=== PATIENT | male | born 1950 | race Caucasian/White ===

== ENCOUNTER 2016-06-27 12:31 | Emergency (ER) | payer OTHER ==
[2016-06-27 12:51] VITALS: BP 121/91; PULSE 84; BMI 20.1
--- NOTE | 2016-06-27 12:57 | PDOC ---
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 HISTORY OF PRESENT ILLNESS: The patient denies fever, n/v/d, CP, SOB, abd pain , back pain, and all other symptoms. Pt denies any hx of illicit drug use. Pt currently smokes 10 cigarettes a day. Pt currently lives in a senior care. Vital signs on arrival are within normal limits. REVIEW OF SYSTEMS: GENERAL/CONSTITUTIONAL: No fever/chills. No weakness. No weight change. HEAD, EYES, EARS, NOSE AND THROAT: No change in vision. No ear pain or discharge. No sore throat. CARDIOVASCULAR: No chest pain or shortness of breath. RESPIRATORY: No cough, wheezing, or hemoptysis. GASTROINTESTINAL: +constipation. No abd pain, nausea, vomiting. GENITOURINARY: No dysuria, frequency, or change in urination. MUSCULOSKELETAL: No joint or muscle swelling or pain. No neck or back pain. SKIN: No rash or easy bruising. NEUROLOGIC: No headache, vertigo, loss of consciousness, or loss of sensation. PHYSICAL EXAM: GENERAL: The patient is awake, alert, and fully oriented, in no acute distress. He is ambulatory and well appearing. HEAD: Normal with no signs of trauma. ENT: Pupils equal, round and reactive to light, extraocular movements intact, sclera anicteric, conjunctiva clear. Neck supple. LUNGS: Clear to auscultation bilaterally. Normal excursion. No respiratory distress or use of accessory muscles. CV: RRR, S1/S2, no MRG. Cap refill < 2 sec. ABDOMEN: Soft, non-distended, non-tender even to deep palpation, no hepatomegaly or splenomegaly, no masses. EXTREMITIES: Normal range of motion, no edema. NEUROLOGICAL: Normal speech, normal gait. CN II-XII grossly intact. PSYCH: Anxious SKIN: Warm, dry, normal turgor, no rashes or lesions noted. <Marge Campos - Last Filed: 06/27/16 17:55> <Teresa Marino - Last Filed: 06/28/16 10:12> - General Chief Complaint: Constipation Stated Complaint: ABD PAIN Time Seen by Provider: 06/27/16 12:52 Past History - Past Medical History Cancer: Yes (throat) Hypercholesterolemia: Yes Psychiatric Problems: Yes (anxiety,depression) Suicide Attempt (Hx): Yes - Psycho/Social/Smoking Cessation Hx Anxiety: No Suicidal Ideation: No Smoking History: Current every day smoker Have you smoked in the past 12 months: Yes Number of Cigarettes Smoked Daily: 8 Information on smoking cessation initiated: No Hx Alcohol Use: No Drug/Substance Use Hx: No Substance Use Type: None <Marge Campos - Last Filed: 06/27/16 17:55> <Teresa Marino - Last Filed: 06/28/16 10:12> - Past Medical History Allergies/Adverse Reactions: Allergies Allergy/AdvReac Type Severity Reaction Status Date / Time No Known Allergies Allergy Verified 03/24/16 12:43 Home Medications: Ambulatory Orders Polyethylene Glycol 3350 [Miralax (For Daily Use) -] 17 gm PO DAILY #1 bottle *Physical Exam - Vital Signs Last Vital Signs Temp Pulse Resp BP Pulse Ox 84 18 121/91 100 06/27/16 12:47 06/27/16 12:47 06/27/16 12:47 06/27/16 12:47 <aMrge Campos - Last Filed: 06/27/16 17:55> - Vital Signs Last Vital Signs Temp Pulse Resp BP Pulse Ox 84 18 121/91 100 06/27/16 12:47 06/27/16 12:47 06/27/16 12:47 06/27/16 12:47 <Teresa Marino - Last Filed: 06/28/16 10:12> ED Treatment Course - Medications Given in the ED: ED Medications Discontinued Medications Generic Name Dose Route Start Last Admin Trade Name Freq PRN Reason Stop Dose Admin Lactulose 20 gm 06/27/16 16:10 06/27/16 16:20 Cephulac (Oral Use) PO 06/27/16 16:11 20 gm ONCE ONE Administration <Teresa Marino - Last Filed: 06/28/16 10:12> Medical Decision Making - Medical Decision Making A/P: 65 y/o afebrile male with constipation x 5-6 days. Plan is as follows: 1. xray abd flat and upright xray abd flat/upright IMPRESSION (Wet read): No evidence of bowel obstruction. Large amount of stool in the rectum. THe patient has continued to appear well in the ER and has eaten a sandwich. Will give Lactulose and discharge to home. Strongly encouraged him to drink plenty of fluids and f/u with his doctor as soon as possible. Instructed him to return to the ER with any worsening or concerning symptoms. The patient verbalizes understanding of all instructions, has no further questions and is awaiting discharge. xray abd flat/upright IMPRESSION (official read): Prominent diffuse colonic fecal retention. No air- filled bowel distention is visualized. <Marge Campos - Last Filed: 06/27/16 17:55> *DC/Admit/Observation/Transfer <Marge Campos - Last Filed: 06/27/16 17:55> - Attestations Physician Attestion: I reviewed the case with the mid-level practitioner and agree with the mid- level practitioner's assessment, diagnosis and disposition. <Teresa Marino - Last Filed: 06/28/16 10:12> Diagnosis at time of Disposition: Constipated - Discharge Dispostion Disposition: HOME Condition at time of disposition: Good - Prescriptions Prescriptions: Polyethylene Glycol 3350 [Miralax (For Daily Use) -] 17 gm PO DAILY #1 bottle - Referrals Referrals: Denis Buchanan MD [Primary Care Provider] - Call tomorrow - Patient Instructions Printed Discharge Instructions: DI for Constipation, Increased Dietary Fiber May Improve Constipation Conditions With Pelvic Pardeep Additional Instructions: Discharge Instructions: -Drink at least 64oz of water daily -Take Miralax for constipation; it can be found over the counter at any local pharmacy -Follow up with Dr. Buchanan this week -Return to the ER with any worsening or concerning symptoms
[2016-06-27] MEDS ORDERED: LACTULOSE 20 GM/30 ML UDC (FOR ORAL USE ONLY) PO ONE (16:10)
[2016-06-27] MEDS ORDERED: LACTULOSE 20 GM/30 ML UDC (FOR ORAL USE ONLY) ONE (16:21)
== END 2016-06-27 16:20 | disposition home or self-care (01) ==
LOC: JER 12:31
DX: K59.00 Constipation, unspecified (principal); F41.8 Other specified anxiety disorders; C14.0 Malignant neoplasm of pharynx, unspecified; F17.210 Nicotine dependence, cigarettes, uncomplicated
CPT/HCPCS: 74020-TC; 99282-25

== ENCOUNTER 2018-04-07 14:01 | Inpatient (IN) | payer OTHER ==
--- NOTE | 2018-04-07 14:52 | PDOC ---
Attending Attestation - Resident Resident Name: Lucinda Eisenberg - [facility] HPI: 04/07/18 17:38 The patient is a 67-year-old male with past medical history significant depression presents to the emergency department via EMS from a intermediate with a week of a cough. The patient reports hes been having a week of a productive cough with yellow-greenish sputum, thats been progressively worsening. The patient reports associated symptom of decreased appetite, weight loss, and a sore throat. The patient denies being compliant with medication. Denies fever, headaches, chest pain, abdominal pain, nausea, vomiting, diarrhea, or urinary or bowel symptoms. Allergies: NKA Social history: Current everyday smoker. No past or present use of alcohol or recreational drugs. Surgical history : None reported - Physicial Exam PE: 04/07/18 17:38 GENERAL: Speaking in complete sentence. Awake, alert, and fully oriented, in no acute distress LUNGS: +decreased breath sounds bilaterally with crackles at the base. No wheezes. HEART: Regular rate and rhythm, normal S1 and S2, no murmurs, rubs or gallops - Medical Decision Making 04/07/18 17:42 Documentation prepared by Elaine Sanchez, acting as medical doctor md/medical director for Sydnie Ruiz MD.
--- NOTE | 2018-04-07 15:07 | PDOC ---
History of Present Illness - General Chief Complaint: Shortness of Breath Stated Complaint: DIFF. BREATHING Time Seen by Provider: 04/07/18 14:49 History Source: Patient Exam Limitations: No Limitations - History of Present Illness Initial Comments: 04/07/18 15:06 Pt is a 67yo m with PMH of depression BIBA from care home for cough. Pt says he has been having cough for the past couple of weeks productive of green- yellow sputum that has gotten worse. Pt says he saw his PMD a few weeks ago but did not have any medications given. prison called EMS for patient. He admits to sore throat, SOB during coughs and nausea. He is denying fevers, headaches, chest pain, abdominal pain, n/v/d, urinary symptoms, weakness, numbness tingling. When asked, pt says that he has been losing weight, has night sweats and loss of appetite. Denies hemoptysis. He has been smoking "for a long time" and smokes 7 cigarettes/day. Denies IV drug use, alcohol use. Denies sick contacts. PMD: Dewayne PMH: depression PSH: tongue mass removal Meds: see med rec Social: 7 cigarettes/day Allergies: nkda Past History - Past Medical History Allergies/Adverse Reactions: Allergies Allergy/AdvReac Type Severity Reaction Status Date / Time No Known Allergies Allergy Verified 04/07/18 14:22 Home Medications: Ambulatory Orders Clonazepam [Klonopin] 1 tab PO BID 04/07/18 Clozapine 200 mg PO HS 04/07/18 Clozapine [Versacloz] 50 mg PO DAILY 04/07/18 Escitalopram Oxalate [Lexapro -] 10 mg PO DAILY 04/07/18 Cancer: Yes (throat) COPD: No Hypercholesterolemia: Yes Psychiatric Problems: Yes (anxiety,depression) - Suicide/Smoking/Psychosocial Hx Smoking History: Current every day smoker Have you smoked in the past 12 months: Yes Number of Cigarettes Smoked Daily: 8 Information on smoking cessation initiated: No Hx Alcohol Use: No Drug/Substance Use Hx: No Substance Use Type: None Review of Systems - Review of Systems Constitutional: Yes: Chills, Loss of Appetite, Night Sweats, Weakness, Unintentional Wgt. Loss. No: Fever HEENTM: Yes: Throat Pain. No: Eye Pain, Blurred Vision, Ear Pain, Nose Congestion Respiratory: Yes: Cough, Shortness of Breath. No: Hemoptysis Cardiac (ROS): No: Chest Pain, Lightheadedness, Palpitations, Syncope ABD/GI: Yes: Nausea. No: Constipated, Diarrhea, Rectal Bleeding, Vomiting, Tarry Stools : No: Burning, Dysuria, Frequency, Flank Pain, Testicular Swelling, Testicular Pain Musculoskeletal: No: Joint Pain, Muscle Pain, Neck Pain, Joint Stiffness Integumentary: No: Symptoms Reported Neurological: No: Headache, Numbness, Tingling, Tremors, Weakness Psychiatric: Yes: Depression *Physical Exam - Vital Signs Last Vital Signs Temp Pulse Resp BP Pulse Ox 99.3 F 83 20 113/80 93 L 04/07/18 14:16 04/07/18 14:58 04/07/18 14:58 04/07/18 14:16 04/07/18 14:58 - Physical Exam General Appearance: Yes: Appropriately Dressed, Cachetic. No: Apparent Distress HEENT: positive: EOMI, JASWINDER, TMs Normal, Pharynx Normal, Hearing Grossly Normal. negative: Pharyngeal Erythema, Tonsillar Exudate, Nasal Congestion Neck: positive: Trachea midline, Supple. negative: Carotid bruit, Lymphadenopathy (R), Lymphadenopathy (L) Respiratory/Chest: positive: Decreased Breath Sounds (in both lung sosa), Crackles (lower lung sosa). negative: Lungs Clear, Normal Breath Sounds Cardiovascular: positive: Regular Rhythm, Regular Rate, S1, S2. negative: Edema , JVD, Murmur Vascular Pulses: Carotid (R): 2+, Carotid (L): 2+, Dorsalis-Pedis (R): 2+, Doralis-Pedis (L): 2+ Gastrointestinal/Abdominal: positive: Normal Bowel Sounds, Flat, Soft. negative : Distended, Guarding, Rebound, Tenderness Male Genitalia: positive: normal genitalia. negative: testicular tenderness, testicular mass Musculoskeletal: negative: CVA Tenderness Extremity: positive: Normal Capillary Refill, Other (clubbing). negative: Swelling, Calf Tenderness Integumentary: positive: Normal Color, Dry, Warm. 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 negative: Sensory Deficit ED Treatment Course - LABORATORY CBC & Chemistry Diagram: 04/07/18 15:36 04/07/18 15:36 Medical Decision Making - Medical Decision Making 04/07/18 15:23 Pt is a 67yo m with PMH of depression ANGELLA from care home for cough. Pt says he has been having cough for the past couple of weeks productive of green- yellow sputum that has gotten worse. has been losing weight, has night sweats and loss of appetite Vitals: Selected Entries 04/07/18 14:16 Temperature 99.3 F Respiratory 18 Rate Blood Pressure 113/80 Blood Pressure 91 Mean O2 Sat by Pulse 94 L Oximetry (%) PE: cachectic, decreased breath sounds bilaterally with crackles at the bases Rectal temp 101. DDx: pna, copd, chf, acs, pe, low suspicion for pe given normotensive, not tachycardic, RR wnl. Low saturation could be better explained by pna or copd. Pt does not have proper pmd follow up, could have undiagnosed copd (chronic smoker). bcx drawn. ua, ucx, cbc, cmp, lactate. flu swab pt started on duonebs and levaquin. CXR ordered, no discrete focal infiltrate, no difference from prior studies. EKG: wnl Laboratory Tests 04/07/18 04/07/18 04/07/18 15:35 15:36 15:36 WBC 10.0 Hgb 13.0 POC VBG pCO2 52.5 H POC VBG pO2 25.0 L Mixed VBG HCO3 30.2 H Sodium Potassium Chloride Carbon Dioxide Anion Gap BUN Creatinine Random Glucose Lactic Acid 0.9 Calcium Troponin I Urine Protein Urine Glucose (UA) Ur Leukocyte Esterase Urine WBC (Auto) Urine RBC (Auto) 04/07/18 04/07/18 15:36 16:33 WBC Hgb POC VBG pCO2 POC VBG pO2 Mixed VBG HCO3 Sodium 140 Potassium 4.4 Chloride 105 Carbon Dioxide 32 Anion Gap 4 L BUN 25 H Creatinine 0.9 Random Glucose 106 Lactic Acid Calcium 8.5 Troponin I < 0.02 Urine Protein 1+ H Urine Glucose (UA) 1+ H Ur Leukocyte Esterase Negative Urine WBC (Auto) 2 Urine RBC (Auto) 2 Pt retaining CO2, fits COPD picture. Urine pna antigen ordered. Will admit for cOPD exacerbation 04/07/18 20:07 *DC/Admit/Observation/Transfer Diagnosis at time of Disposition: COPD exacerbation - Discharge Dispostion Condition at time of disposition: Good Decision to Admit order: Yes - Referrals - Patient Instructions - Post Discharge Activity
[2018-04-07 15:50] LABS: BASO % 0.2 % (0-2.0); EOS % 0.3 % (0-4.5); HEMATOCRIT 37.2 % (35.4-49); LYMPH % 6.8 % (8-40); MCH 33.9 pg (25.7-33.7); MCHC 34.9 g/dl (32.0-35.9); MEAN CELL VOLUME 97.1 fl (80-96); MEAN PLT VOLUME 7.3 fl (7.5-11.1); MONO % 5.5 % (3.8-10.2); NEUT % 87.2 % (42.8-82.8); PLATELET COUNT 213 K/MM3 (134-434); RBC 3.83 M/mm3 (4.00-5.60); RDW 13.8 % (11.9-15.9)
[2018-04-07 16:05] LABS: VENOUS PC02 52.5 mmHg (38-52); VENOUS PH 7.38 (7.32-7.42)
[2018-04-07] MEDS ORDERED: ACETAMINOPHEN 500 MG TABLET (FP) PO ONE (16:07)
[2018-04-07] MEDS ORDERED: ACETAMINOPHEN 325 MG TABLET (FP) ONE (16:14)
[2018-04-07 16:27] LABS: ALBUMIN 3.4 g/dl (3.4-5.0); ALK PHOS 94 U/L (45-117); ANION GAP 4 MMOL/L (8-16); BILIRUBIN,TOTAL 0.7 mg/dL (0.2-1); BLOOD UREA NITROGEN 25 mg/dL (7-18); CALCIUM 8.5 mg/dL (8.5-10.1); CHLORIDE 105 mmol/L (98-107); CO2 32 mmol/L (21-32); CREATININE 0.9 mg/dL (0.55-1.3); GLUCOSE,RANDOM 106 mg/dL (74-106); POTASSIUM 4.4 mmol/L (3.5-5.1); SGOT/AST 17 U/L (15-37); SGPT/ALT 19 U/L (13-61); SODIUM 140 mmol/L (136-145); TOT PROT 6.4 g/dl (6.4-8.2)
[2018-04-07] MEDS ORDERED: ALBUTEROL SO4 2.5/IPRATROPIUM 0.5 INH SOL 3 ML VIAL.NEB. NEB STA (16:32)
[2018-04-07] MEDS ORDERED: ALBUTEROL SO4 2.5/IPRATROPIUM 0.5 INH SOL 3 ML VIAL.NEB. NEB ONE ×2 (16:38→21:25)
[2018-04-07 16:52] LABS: URINE APPEARANCE SLCLOUDY; URINE BILIRUBIN NEGATIVE (<2.0 mg/dL); URINE COLOR AMBER; URINE GLUCOSE (UA) 1+ (NEGATIVE); URINE KETONE NEGATIVE (NEGATIVE); URINE LEUK ESTERASE NEGATIVE (NEGATIVE); URINE NITRITE NEGATIVE (NEGATIVE); URINE PROTEIN 1+ (NEGATIVE); URINE UROBILINOGEN NEGATIVE mg/dL (0.2-1.0)
[2018-04-07 16:58] LABS: EPI CELLS RARE /HPF (FEW); URINE MUCUS MANY
--- NOTE | 2018-04-07 18:37 | HP ---
CHIEF COMPLAINT: Cough PCP: Dr. Buchanan ([facility]) PSYCH: Dr. Ashton ([phone]) HISTORY OF PRESENT ILLNESS: 67 y/o M with PMHx of Depression, Anxiety, HLD, Throat cancer was BIBEMS from [facility] with Cough. Patient has been feeling "out of sorts" for many weeks with gradual worsening of Cough. He has had a similar cough in the past however it has never been this profound. Patient visited his PCP one month ago and was told to take OTC cold medications however these have not provided any relief. Cough is productive of Green/Yellow Sputum without any accompanying hemoptysis. Additionally endorses Loss of appetite, Dec PO Intake, Weight Loss, Night sweats, Chills, Generalized body aches. Received Flu-Shot few weeks ago. Denies any sick contacts, Recent travel or recent medication changes. 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 Ambulation: Without assistance Family History: Father: of unknown cancer Mother: Unknown Allergies No Known Allergies Allergy (Verified 04/07/18 14:22) HOME MEDICATIONS: Home Medications Medication Instructions Recorded Clonazepam [Klonopin] 1 tab PO BID 04/07/18 Clozapine 200 mg PO HS 04/07/18 Clozapine [Versacloz] 50 mg PO DAILY 04/07/18 Escitalopram Oxalate [Lexapro -] 10 mg PO DAILY 04/07/18 REVIEW OF SYSTEMS As per HPI PHYSICAL EXAMINATION Vital Signs - 24 hr 04/07/18 04/07/18 04/07/18 14:16 14:58 15:03 Temperature 99.3 F Pulse Rate 89 Pulse Rate [ 83 Apical] Respiratory 18 20 Rate Blood Pressure 113/80 O2 Sat by Pulse 94 L 93 L 93 L Oximetry (%) 04/07/18 15:15 Temperature Pulse Rate Pulse Rate [ Apical] Respiratory Rate Blood Pressure O2 Sat by Pulse 100 Oximetry (%) GENERAL: A&Ox3, NAD, Lying comfortably in bed, Profoundly Chachectic with prominent Clavicles and prominent ribs HEAD: NCAT,Temporal wasting EYES: EOMI EARS, NOSE, THROAT: Moist mucous membranes. NECK: No JVD LUNGS: Crackles at the Left Base. No wheezes. HEART: Distant heart sounds, Regular rate and rhythm, normal S1 and S2 without murmur ABDOMEN: Scaphoid Abdomen, Soft, nontender, not distended, + bowel sounds, no guarding, Pulsatile mass likely Aorta MUSCULOSKELETAL: No CVA tenderness. UPPER EXTREMITIES: 2+ pulses, Clubbing b/l LOWER EXTREMITIES: 2+ pulses, No calf tenderness. No peripheral edema. NEUROLOGICAL: Cranial nerves II-XII intact. Normal speech. SKIN: Warm, dry, Diffuse scabbed over lesions with Dry scaly skin over Abdomen. Laboratory Results - last 24 hr 04/07/18 04/07/18 04/07/18 15:35 15:36 15:36 WBC 10.0 RBC 3.83 L Hgb 13.0 Hct 37.2 D MCV 97.1 H MCH 33.9 H MCHC 34.9 RDW 13.8 Plt Count 213 MPV 7.3 L Absolute Neuts (auto) 8.7 H Neutrophils % 87.2 H Lymphocytes % 6.8 L D Monocytes % 5.5 Eosinophils % 0.3 Basophils % 0.2 Nucleated RBC % 0 VBG pH 7.38 POC VBG pCO2 52.5 H POC VBG pO2 25.0 L Mixed VBG HCO3 30.2 H Sodium Potassium Chloride Carbon Dioxide Anion Gap BUN Creatinine Creat Clearance w eGFR Random Glucose Lactic Acid 0.9 Calcium Total Bilirubin AST ALT Alkaline Phosphatase Troponin I Total Protein Albumin Urine Color Urine Appearance Urine pH Ur Specific Braddock Urine Protein Urine Glucose (UA) Urine Ketones Urine Blood Urine Nitrite Urine Bilirubin Urine Urobilinogen Ur Leukocyte Esterase Urine WBC (Auto) Urine RBC (Auto) Ur Epithelial Cells Urine Mucus 04/07/18 04/07/18 15:36 16:33 WBC RBC Hgb Hct MCV MCH MCHC RDW Plt Count MPV Absolute Neuts (auto) Neutrophils % Lymphocytes % Monocytes % Eosinophils % Basophils % Nucleated RBC % VBG pH POC VBG pCO2 POC VBG pO2 Mixed VBG HCO3 Sodium 140 Potassium 4.4 Chloride 105 Carbon Dioxide 32 Anion Gap 4 L BUN 25 H Creatinine 0.9 Creat Clearance w eGFR > 60 Random Glucose 106 Lactic Acid Calcium 8.5 Total Bilirubin 0.7 AST 17 ALT 19 Alkaline Phosphatase 94 Troponin I < 0.02 Total Protein 6.4 Albumin 3.4 Urine Color Aria Urine Appearance Slcloudy Urine pH 6.0 Ur Specific Braddock 1.026 Urine Protein 1+ H Urine Glucose (UA) 1+ H Urine Ketones Negative Urine Blood Negative Urine Nitrite Negative Urine Bilirubin Negative Urine Urobilinogen Negative Ur Leukocyte Esterase Negative Urine WBC (Auto) 2 Urine RBC (Auto) 2 Ur Epithelial Cells Rare Urine Mucus Many Active Medications Albuterol/Ipratropium (Duoneb -) 1 amp NEB RQID JOHN Albuterol/Ipratropium (Duoneb -) 1 amp NEB Q4H PRN PRN Reason: SHORTNESS OF BREATH Enoxaparin Sodium (Lovenox -) 40 mg SQ DAILY [facility] Last Admin: 04/07/18 19:11 Dose: 40 mg Escitalopram Oxalate (Lexapro -) 10 mg PO DAILY [facility] Sodium Chloride (Normal Saline -) 1,000 mls @ 83 mls/hr IV ASDIR [facility] Last Admin: 04/07/18 19:11 Dose: 83 mls/hr Levofloxacin (Levaquin 500 Mg Premixed Ivpb -) 500 mg in 100 mls @ 100 mls/hr IVPB Q24H JOHN; Protocol Non-Formulary Medication (Clonazepam [Klonopin]) 1 tab PO BID JOHN Non-Formulary Medication (Clozapine [Clozapine]) 200 mg PO HS JOHN Non-Formulary Medication (Clozapine [Versacloz]) 50 mg PO DAILY [facility] ASSESSMENT/PLAN: 67 y/o M with PMHx of Depression, Anxiety, HLD, Throat cancer was BIBEMS from [facility] with Cough #Cough -Likely due to CAP given Fever (Rectal Temp 101), Cough productive of Green sputum, Left basilar crackles -CXR shows possible LLL Infiltrate on my read, pending official read -Flu Swab negative -Strep Pneumo and Legionella Urine Ag, Sputum/blood/urine Cx pending -Chest CT without contrast, Aorta US pending -Started Levaquin 750mg in ED (04/07) -IV NS @ 83 mls/hr -Duonebs John and PRN -Chest PT #Hx of Depression/Anxiety -Restarted Home dose Klonopin, Clozapine, Lexapro #FEN -IV NS @ 83 -Lytes WNL -Sodium controlled diet #PPx -Lovenox Dispo: Admit to Med-Surg Visit type - Emergency Visit Emergency Visit: Yes ED Registration Date: 04/07/18 Care time: The patient presented to the Emergency Department on the above date and was hospitalized for further evaluation of their emergent condition. - New Patient This patient is new to me today: Yes Date on this admission: 04/07/18 - Critical Care Critical Care patient: No
--- NOTE | 2018-04-07 18:41 | PN ---
Teaching Attending Note Name of Resident: Orly Pond ATTENDING PHYSICIAN STATEMENT I saw and evaluated the patient. I reviewed the resident's note and discussed the case with the resident. I agree with the resident's findings and plan as documented. CC: cough, SOB, sputum production and chills. HPI : 67 y/o man with h/o depression , anxiety, ? tongue cancer resection who presented with cough, green sputum production, and chills x 1-2 weeks. reports cough x 1 month, saw his PCP , but did not improve, . 2 weeks ago , cough started to get worse, with body aches, chills, and poor appetite. he denies CP , but it hurts when he coughs. he has no diarrhea, dysuria, sore throat, or FRANCIS . he denies sick contact or recent travel. he is active smoker x 40 years . he reports weight loss x 30 pounds in past year. he reports a mass removed form back of his tongue and was told it was cancer. no other treatments were given for this. OBJECTIVE: NAD , awake, alert, oriented, flat affect, avoids eye contact. chachectic. HEENT: temporal wasting, MMM, EOMi, round equal pupils, reactive to light, no facial droop, unable to visualize oropharynx. CV: RRR. no MRG Lungs: L base crackles, prolonged expiratory phase. good air entry Abd : soft, Nt, ND , NL Bs , stool felt in LLQ Ext: no edema ,dry scaly skin on feet with deformed nails . Neuro: EOMI, round pupils, reactive to light, tongue at mid line, no facial droop, nl facial sensation . strength 5/5 in upper and lower extremities proximally and distally. sensation to light touch NL. Skin : signs of ciborrhic dermatitis on forehead, and seborrhic keratosis on abd and lower chest . fungal infection on feet. ASSESSMENT AND PLAN: 67 y/o man with h/o depression , anxiety, ? tongue cancer resection who presented with cough, green sputum production, and chills x 1-2 weeks. 1- SOB and cough: likely due to CAP, especially with L base crackles, and rectal fever of 101 , and productive cougha nd L base infiltrate on Cxray ( final report to follow ) - start levaqin . - blood cx pending - check sputum cx - legionella urine Ag and pneumococcal Ag - IVF . - CT scan of chest to r/o malignancy in a smoker with weight loss 2- h/o depression and anxiety . cont meds DVT PX
[2018-04-07] MEDS ORDERED: ALBUTEROL SO4 2.5/IPRATROPIUM 0.5 INH SOL 3 ML VIAL.NEB. NEB PRN (18:48)
[2018-04-07] MEDS ORDERED: ENOXAPARIN NA (PORCINE) 40 MG/0.4 ML DISP.SYRIN SQ ONE (19:09)
[2018-04-07] MEDS: ENOXAPARIN NA (PORCINE) 40 MG/0.4 ML DISP.SYRIN SQ SCH (19:11)
[2018-04-07] MEDS: SODIUM CHLORIDE 1,000 ML IV SCH (19:11)
[2018-04-07] MEDS ORDERED: CLOZAPINE 200 MG PO SCH (22:00)
[2018-04-07 23:00] VITALS: BMI 14.5
[2018-04-07] MEDS: clonazePAM 0.5 MG TABLET PO SCH (23:30)
[2018-04-08] MEDS: cloZAPine 100 MG TABLET PO SCH ×2 (00:44→21:08)
[2018-04-08] MEDS: SODIUM CHLORIDE 1,000 ML IV SCH (05:50)
[2018-04-08] MEDS: ALBUTEROL SO4 2.5/IPRATROPIUM 0.5 INH SOL 3 ML VIAL.NEB. NEB SCH ×4 (07:30→20:36)
[2018-04-08 07:51] LABS: BASO % 0.5 % (0-2.0); EOS % 0.7 % (0-4.5); HEMATOCRIT 31.3 % (35.4-49); HEMOGLOBIN 11.2 GM/dL (11.7-16.9); LYMPH % 11.9 % (8-40); MCH 34.5 pg (25.7-33.7); MCHC 35.9 g/dl (32.0-35.9); MEAN CELL VOLUME 96.2 fl (80-96); MEAN PLT VOLUME 7.4 fl (7.5-11.1); NEUT % 79.9 % (42.8-82.8); PLATELET COUNT 198 K/MM3 (134-434); RBC 3.25 M/mm3 (4.00-5.60); RDW 13.6 % (11.9-15.9); WHITE BLOOD COUNT 6.8 K/mm3 (4.0-10.0)
[2018-04-08 08:33] LABS: ALBUMIN 2.8 g/dl (3.4-5.0); ALK PHOS 74 U/L (45-117); ANION GAP 8 MMOL/L (8-16); BILIRUBIN,TOTAL 0.6 mg/dL (0.2-1); BLOOD UREA NITROGEN 20 mg/dL (7-18); CALCIUM 7.6 mg/dL (8.5-10.1); CHLORIDE 110 mmol/L (98-107); CO2 27 mmol/L (21-32); CREATININE 0.7 mg/dL (0.55-1.3); GLUCOSE,RANDOM 83 mg/dL (74-106); MAGNESIUM 1.9 mg/dL (1.8-2.4); PHOSPHOROUS 2.3 mg/dL (2.5-4.9); POTASSIUM 3.8 mmol/L (3.5-5.1); SGOT/AST 11 U/L (15-37); SGPT/ALT 13 U/L (13-61); SODIUM 145 mmol/L (136-145); TOT PROT 5.3 g/dl (6.4-8.2)
[2018-04-08] MEDS ORDERED: PT OWN MED DRAWER 7, Y5N ONE ×2 (10:23→20:55)
[2018-04-08] MEDS: clonazePAM 0.5 MG TABLET PO SCH ×2 (10:31→21:08)
[2018-04-08] MEDS: ESCITALOPRAM OXALATE 10 MG TABLET (FP) PO SCH (10:31)
[2018-04-08] MEDS: cloZAPine 25 MG TABLET PO SCH (10:31)
[2018-04-08] MEDS: ENOXAPARIN NA (PORCINE) 40 MG/0.4 ML DISP.SYRIN SQ SCH (10:32)
[2018-04-08] MEDS ORDERED: NAPH,MB-DB/K PH,MBDB POWDER PACKET PO ONE (14:45)
--- NOTE | 2018-04-08 14:52 | PN ---
Progress Note (short form) - Note Progress Note: Subjective: no fever or chills. has dysphasia . has decreased appetite Objective: Vital Signs: Last Vital Signs Temp Pulse Resp BP Pulse Ox 99.7 F H 89 17 87/58 L 97 04/08/18 14:00 04/08/18 14:00 04/08/18 14:00 04/08/18 14:00 04/08/18 09:00 Laboratory Results - last 24 hr 04/07/18 04/07/18 04/07/18 15:35 15:36 15:36 WBC 10.0 RBC 3.83 L Hgb 13.0 Hct 37.2 D MCV 97.1 H MCH 33.9 H MCHC 34.9 RDW 13.8 Plt Count 213 MPV 7.3 L Absolute Neuts (auto) 8.7 H Neutrophils % 87.2 H Lymphocytes % 6.8 L D Monocytes % 5.5 Eosinophils % 0.3 Basophils % 0.2 Nucleated RBC % 0 VBG pH 7.38 POC VBG pCO2 52.5 H POC VBG pO2 25.0 L Mixed VBG HCO3 30.2 H Sodium Potassium Chloride Carbon Dioxide Anion Gap BUN Creatinine Creat Clearance w eGFR Random Glucose Lactic Acid 0.9 Calcium Phosphorus Magnesium Total Bilirubin AST ALT Alkaline Phosphatase Troponin I Total Protein Albumin Urine Color Urine Appearance Urine pH Ur Specific Cactus Urine Protein Urine Glucose (UA) Urine Ketones Urine Blood Urine Nitrite Urine Bilirubin Urine Urobilinogen Ur Leukocyte Esterase Urine WBC (Auto) Urine RBC (Auto) Ur Epithelial Cells Urine Mucus 04/07/18 04/07/18 04/08/18 15:36 16:33 06:40 WBC 6.8 RBC 3.25 L Hgb 11.2 L Hct 31.3 L D MCV 96.2 H MCH 34.5 H MCHC 35.9 RDW 13.6 Plt Count 198 MPV 7.4 L Absolute Neuts (auto) 5.5 Neutrophils % 79.9 Lymphocytes % 11.9 D Monocytes % 7.0 Eosinophils % 0.7 D Basophils % 0.5 Nucleated RBC % 0 VBG pH POC VBG pCO2 POC VBG pO2 Mixed VBG HCO3 Sodium 140 Potassium 4.4 Chloride 105 Carbon Dioxide 32 Anion Gap 4 L BUN 25 H Creatinine 0.9 Creat Clearance w eGFR > 60 Random Glucose 106 Lactic Acid Calcium 8.5 Phosphorus Magnesium Total Bilirubin 0.7 AST 17 ALT 19 Alkaline Phosphatase 94 Troponin I < 0.02 Total Protein 6.4 Albumin 3.4 Urine Color Aria Urine Appearance Slcloudy Urine pH 6.0 Ur Specific Cactus 1.026 Urine Protein 1+ H Urine Glucose (UA) 1+ H Urine Ketones Negative Urine Blood Negative Urine Nitrite Negative Urine Bilirubin Negative Urine Urobilinogen Negative Ur Leukocyte Esterase Negative Urine WBC (Auto) 2 Urine RBC (Auto) 2 Ur Epithelial Cells Rare Urine Mucus Many 04/08/18 06:40 WBC RBC Hgb Hct MCV MCH MCHC RDW Plt Count MPV Absolute Neuts (auto) Neutrophils % Lymphocytes % Monocytes % Eosinophils % Basophils % Nucleated RBC % VBG pH POC VBG pCO2 POC VBG pO2 Mixed VBG HCO3 Sodium 145 Potassium 3.8 Chloride 110 H Carbon Dioxide 27 Anion Gap 8 BUN 20 H Creatinine 0.7 Creat Clearance w eGFR > 60 Random Glucose 83 Lactic Acid Calcium 7.6 L Phosphorus 2.3 L Magnesium 1.9 Total Bilirubin 0.6 AST 11 L ALT 13 Alkaline Phosphatase 74 Troponin I Total Protein 5.3 L Albumin 2.8 L Urine Color Urine Appearance Urine pH Ur Specific Cactus Urine Protein Urine Glucose (UA) Urine Ketones Urine Blood Urine Nitrite Urine Bilirubin Urine Urobilinogen Ur Leukocyte Esterase Urine WBC (Auto) Urine RBC (Auto) Ur Epithelial Cells Urine Mucus Physical Exam: NAD , flat affect, avoids eye contact. cachectic. CV: RRR. no MRG Lungs: L base crackles, prolonged expiratory phase. good air entry Abd : soft, Nt, ND , NL Bs. Ext: no edema ,dry scaly skin on feet with deformed nails . ASSESSMENT AND PLAN: 67 y/o man with h/o depression , anxiety, ? tongue cancer resection who presented with cough, green sputum production, and chills x 1-2 weeks. he was found to have CAP 1- CAP: - cont levaquin, day 2 - blood cx pending - sputum cx pending - legionella urine Ag and pneumococcal Ag - IVF . - out pt CT for f/u needed 2- decreased appetite and weight loss. CT scan with no lung mass . age appropriate cancer screening needed as out pt. start remeron speech eval for dysphagea 3- h/o depression and anxiety . cont meds 4- h/o ? tongue cancer. f/u with his surgon /onc as out pt DVT PX Visit type - Emergency Visit Emergency Visit: Yes ED Registration Date: 04/07/18 Care time: The patient presented to the Emergency Department on the above date and was hospitalized for further evaluation of their emergent condition. - New Patient This patient is new to me today: No - Critical Care Critical Care patient: No
--- NOTE | 2018-04-08 18:54 | CON.PSY ---
Psychiatry Consult Chief Complaint: I feel a bit oozy but I am ok. Patient has along history of Chronic Schizophrenia, and on psych meds. Lives in a [facility] Home in [place]. Symptoms: reports: Anhedonia, Decreased Energy - Previous Psychiatric Treatment Outpatient: Less than 6 mos ago Inpatient: 2 or more prior admissions - Previous Substance Abuse Treatment Outpatient: None Inpatient: None - Reason for Previous Treatment Reason for Previous Treatment: Major Depression, Psychotic Episode - Current Medications Current Medications: Active Medications Acetaminophen (Tylenol -) 650 mg PO Q6H PRN PRN Reason: fever Albuterol/Ipratropium (Duoneb -) 1 amp NEB RQID [facility] Last Admin: 04/08/18 15:36 Dose: 1 amp Albuterol/Ipratropium (Duoneb -) 1 amp NEB Q4H PRN PRN Reason: SHORTNESS OF BREATH Clonazepam (Klonopin -) 1 mg PO BID [facility] Last Admin: 04/08/18 10:31 Dose: 1 mg Clozapine (Clozaril -) 200 mg PO HS [facility] Stop: 04/08/18 22:01 Last Admin: 04/08/18 00:44 Dose: 200 mg Clozapine (Clozaril -) 50 mg PO DAILY [facility] Stop: 04/09/18 10:01 Last Admin: 04/08/18 10:31 Dose: 50 mg Enoxaparin Sodium (Lovenox -) 40 mg SQ DAILY [facility] Last Admin: 04/08/18 10:32 Dose: 40 mg Escitalopram Oxalate (Lexapro -) 10 mg PO DAILY [facility] Last Admin: 04/08/18 10:31 Dose: 10 mg Sodium Chloride (Normal Saline -) 1,000 mls @ 83 mls/hr IV ASDIR [facility] Last Admin: 04/08/18 05:50 Dose: 83 mls/hr Levofloxacin (Levaquin 500 Mg Premixed Ivpb -) 500 mg in 100 mls @ 100 mls/hr IVPB Q24H [facility]; Protocol Last Admin: 04/08/18 16:05 Dose: 100 mls/hr Mirtazapine (Remeron -) 7.5 mg PO HS [facility] Non-Formulary Medication (Clozapine [Clozapine]) 200 mg PO HS [facility] Non-Formulary Medication (Clozapine [Versacloz]) 50 mg PO DAILY [facility] - Allergies Allergies: Allergies Allergy/AdvReac Type Severity Reaction Status Date / Time No Known Allergies Allergy Verified 04/07/18 14:22 - Current Living Status Usual Living Arrangement: Senior Care - Current Mental Status Evaluation Appearance: Disheveled Attitude: Cooperative - Affect Affect: Constrictive Appropriateness: Appropriate to Content - Mood Mood: Depressed - Speech/Language Expressive: Coherent - Psychomotor Activity Psychomotor Activity: Slowed - Thought Process Thought Process: Intact - Thought Content Hallucinations: Absent Delusions: Absent - Self Perception Self Perception: No Impairment - Cognition Attention: Alert Orientation: Time Memory, Immediate Recall: Intact Memory, Short Term: 3/3 - Concentration Serial Sevens Intact: No Simple Calculations Intact: Yes - Abstraction Proverb Interpretation: Intact Judgement: Intact - Insight Insight: Intact - Impulse Control Impulse Control: Good Control - Suicidal Ideation Suicidal Ideation: No - Homicidal Ideation Homicidal Ideation: No Assessment/Plan 1) Continue with [facility] psych meds. 2) can return to care home when medically stable.
[2018-04-08] MEDS: ACETAMINOPHEN 325 MG TABLET (FP) PO PRN (21:06)
[2018-04-08] MEDS: MIRTAZAPINE 15 MG TABLET (FP) PO SCH (21:08)
[2018-04-09] MEDS: ALBUTEROL SO4 2.5/IPRATROPIUM 0.5 INH SOL 3 ML VIAL.NEB. NEB SCH ×4 (07:45→20:32)
[2018-04-09 08:18] LABS: PHOSPHOROUS 3.1 mg/dL (2.5-4.9); POTASSIUM 3.9 mmol/L (3.5-5.1)
[2018-04-09] MEDS ORDERED: PT OWN MED DRAWER 7, Y5N ONE (09:23)
[2018-04-09] MEDS: ENOXAPARIN NA (PORCINE) 40 MG/0.4 ML DISP.SYRIN SQ SCH (09:40)
[2018-04-09] MEDS: cloZAPine 25 MG TABLET PO SCH (09:41)
[2018-04-09] MEDS: ESCITALOPRAM OXALATE 10 MG TABLET (FP) PO SCH (09:41)
[2018-04-09] MEDS: clonazePAM 0.5 MG TABLET PO SCH ×2 (09:41→21:28)
--- NOTE | 2018-04-09 14:18 | CONSULT ---
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 No chemo/RT. He is edentulous, and needs to be careful eating solids as they "get stuck and need to be washed down." He said he can eat tuna or [employer] sandwiches. He presently smokes 7 cigarettes daily. He reports being seen by ENT 2 months ago. He has been losing weight and has a limited appetite. In records, seen by Nicolas No MD 12/29/16 for neoplasm of tongue. History Source: Patient, Medical Record Limitations to Obtaining History: No Limitations (seems oriented and appropriate. 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 No chemo/RT.) - Smoking History Smoking history: Current every day smoker Have you smoked in the past 12 months: Yes Aproximately how many cigarettes per day: 8 - Alcohol/Substance Use Hx Alcohol Use: No History - Admission Reason For Visit: ACUTE EXACERBATION OF CHRONIC OBSTRUCTIVE - Diagnostics X-ray: Report Reviewed CT Scan: Report Reviewed - General Mental Status: Alert and Oriented, Awake and Alert, Able to Follow Commands Attention: Intact Ability to Follow Directions: Good Head/Neck Control: WFL - Hearing Hearing: Normal Speech Evaluation - Communication Primary Language: URDU Communication: Yes: Within Normal Limits Oral Expression Ability: Yes: No Impairment - Speech Production Able to Make Needs Known: Yes: WNL Intelligibility: Yes: WNL - Speech Characteristics Voice Loudness: Normal Voice Pitch: Yes: Normal Voice Phonatory-based Quality: Yes: Normal Speech Pattern: Normal Speech Clarity: < 100% Nasal Resonance: Normal Articulation: Yes: Precise - Language/Auditory Comprehension Follows: Yes: 1 Stage Simple Commands - Language/Verbal Expression Able to Respond to Simple Queries: Yes: WNL Able to Communicate Wants and Needs: Yes: WNL Functional Communication Status: Yes: WNL - Memory/Perception long-term Memory: Yes: WNL Short Term Memory: Yes: WNL - Swallow Evaluation/Bedside Assessment Current Nutritional Intake: Dysphagia Pureed, Thin Liquids Oral Secretions: Yes: WFL Dentition: Yes: Edentulous Facial Symmetry at Rest: Symmetrical Facial Symmetry on Retraction: Symmetrical Sensation: Normal Against Resistance Opening: Normal Against Resistance Closing: Normal Pucker Lips: Normal Smile: Normal Lingual Movement: Normal, Symmetric Lingual Speed of Movement: Normal Lingual Movement Strgth Against Opposition: Normal Lingual Movement Characteristics: Normal Velopharyngeal Movement: Normal Laryngeal Elevation: WFL Laryngeal Movement: Able to Palpate Rate of Intake: WFL Bolus Size: WFL Labial Seal: WFL Chewing: Impaired Oral Prep Time: WFL A-P Transit: WFL Pocketing: None Timing of Swallow: WFL Coughing/Throat Clear: No Change in Voice: No Recommendations - Speech Evaluation, Impression/Plan Impression: Reports oral dryness and needing to was down solids. He eats sandwiches. He is on a pureed diet. (-) 3 oz water test. - Dysphagia Impressions/Plan *Silent aspiration: cannot be R/O at bedside Dysphagia Treatment Plan: OOB for meals, OOB for 1 h. after meals Recommendations: Modified Barium Swallow (Can be done as out pt, to upgrade diet , if indicated.), Other (Alternate solid with liquid, complete meal with liquid) - Recommendations Diet Consistency: Dysphagia Minced (please add egg salad, tuna salad, chicken salad) Liquids: Thin Liquids Supplement: Ensure, Magic Cup, Ensure Pudding
--- NOTE | 2018-04-09 16:39 | PN ---
Teaching Attending Note Name of Resident: Wayne Cummings ATTENDING PHYSICIAN STATEMENT I saw and evaluated the patient. I reviewed the resident's note and discussed the case with the resident. I agree with the resident's findings and plan as documented. SUBJECTIVE: No fever or chills . NO abd pain , did better on puree diet. no cough . SOB is better OBJECTIVE: NAD, flat affect, avoids eye contact. cachectic. CV: RRR. no MRG Lungs: CTAB Abd: soft, Nt, ND , NL Bs. Ext: no edema ASSESSMENT AND PLAN: 67 y/o man with h/o depression , anxiety, ? tongue cancer resection who presented with cough, green sputum production, and chills x 1-2 weeks. he was found to have CAP 1- CAP: - cont levaquin, day 3 - blood cx nGTD - sputum cx not done yet - legionella urine Ag and pneumococcal Ag neg - IVF . - out pt CT for f/u needed 2- Decreased appetite and weight loss. CT scan with no lung mass . age appropriate cancer screening needed as out pt. cont remeron 3- Dysphagia: speech eval noted. MBS dysphagia diet with minced food and thin liquids 4- h/o depression and anxiety . cont meds 5- h/o ? tongue cancer. f/u with his surgeon /onc as out pt DVT PX to return to his halfway tomorrow
[2018-04-09] MEDS: ACETAMINOPHEN 325 MG TABLET (FP) PO PRN (20:56)
--- NOTE | 2018-04-09 20:56 | PN ---
Physical Exam: SUBJECTIVE: Patient seen and examined this morning at bedside. Continues to have wet cough and mentions no increased appetite. No acute overnight events as per nursing. OBJECTIVE: Vital Signs Period Temp Pulse Resp BP Sys/Mosher Pulse Ox Last 24 Hr 98.7 F-99.8 F 74-98 20-20 101-112/53-72 96 GENERAL: A&Ox3, NAD, Lying comfortably in bed, Profoundly Chachectic with prominent Clavicles and prominent ribs HEAD: NCAT, Temporal wasting EYES: EOMI EARS, NOSE, THROAT: Moist mucous membranes. NECK: No JVD LUNGS: CTAB. No wheezes. HEART: Regular rate and rhythm, normal S1 and S2 without murmur ABDOMEN: Scaphoid Abdomen, Soft, nontender, not distended, + bowel sounds, no guarding, Pulsatile mass likely Aorta EXTREMITIES: 2+ pulses, Clubbing b/l upper extremities, No peripheral edema. NEUROLOGICAL: Cranial nerves II-XII intact. Normal speech. SKIN: Warm, dry, Diffuse scabbed over lesions with Dry scaly skin over Abdomen. Laboratory Results - last 24 hr 04/09/18 07:30 Potassium 3.9 Phosphorus 3.1 Magnesium 2.0 Microbiology 04/07/18 16:05 Blood - Peripheral Venous Blood Culture - Preliminary NO GROWTH OBTAINED AFTER 48 HOURS, INCUBATION TO CONTINUE FOR 3 DAYS. 04/07/18 15:45 Blood - Peripheral Venous Blood Culture - Preliminary NO GROWTH OBTAINED AFTER 48 HOURS, INCUBATION TO CONTINUE FOR 3 DAYS. 04/07/18 16:33 Urine - Urine Clean Catch Urine Culture - Final NO GROWTH OBTAINED 04/07/18 16:57 Urine For Antigen Detection Legionella Antigen - Final 04/07/18 16:57 Urine For Antigen Detection Streptococcus pneumoniae Antigen (M - Final 04/07/18 16:26 Nasopharyngeal Swab Influenza Types A,B Antigen - Final 04/07/18 16:26 Nasopharyngeal Swab - Final Active Medications Acetaminophen (Tylenol -) 650 mg PO Q6H PRN PRN Reason: fever Last Admin: 04/08/18 21:06 Dose: 650 mg Albuterol/Ipratropium (Duoneb -) 1 amp NEB RQID [facility] Last Admin: 04/09/18 20:32 Dose: 1 amp Albuterol/Ipratropium (Duoneb -) 1 amp NEB Q4H PRN PRN Reason: SHORTNESS OF BREATH Clonazepam (Klonopin -) 1 mg PO BID [facility] Last Admin: 04/09/18 09:41 Dose: 1 mg Enoxaparin Sodium (Lovenox -) 40 mg SQ DAILY [facility] Last Admin: 04/09/18 09:40 Dose: 40 mg Escitalopram Oxalate (Lexapro -) 10 mg PO DAILY [facility] Last Admin: 04/09/18 09:41 Dose: 10 mg Sodium Chloride (Normal Saline -) 1,000 mls @ 83 mls/hr IV ASDIR [facility] Last Admin: 04/08/18 05:50 Dose: 83 mls/hr Levofloxacin (Levaquin 500 Mg Premixed Ivpb -) 500 mg in 100 mls @ 100 mls/hr IVPB Q24H [facility]; Protocol Last Admin: 04/09/18 16:43 Dose: 100 mls/hr Mirtazapine (Remeron -) 7.5 mg PO HS [facility] Last Admin: 04/08/18 21:08 Dose: 7.5 mg Non-Formulary Medication (Clozapine [Clozapine]) 200 mg PO HS [facility] Non-Formulary Medication (Clozapine [Versacloz]) 50 mg PO DAILY [facility] IMAGING: -CXR: 2 views of the chest have been submitted. Since 01/04/2018, again noted the chronic changes of the right base with elevated right hemidiaphragm and blunting of the right ankle. The mediastinum is not widened. A scoliosis with some degenerative changes. There are increased markings now at the left base and an early left base infiltrate with some atelectasis at the right base may be present. There is blunting of the right angle. -Aorta US: Mild fusiform dilatation of the mid abdominal aorta measuring 2.4 cm in AP dimension. Both common iliac arteries were not measured. Normal color Doppler and duplex evaluation of the abdominal aorta and its bifurcation. -CT Chest without contrast: Moderately severe centrilobular emphysema. Atelectatic changes and infiltrates in the left lower lobe and lingular segment of the left upper lobe for which a follow-up CT scan of the chest in a couple weeks is needed to assess for change or resolution. Mild. Calcification of the coronary arteries. Possible small hiatus hernia. Mild compression fractures in the thoracic spine without compromise of the spinal canal. Significant deformity of the included portion of the left humeral head and neck suggestive of a fracture, of indeterminate age. Posterior dislocation of left humeral head relative to the glenoid fossa with degenerative changes. ASSESSMENT/PLAN: 67 y/o M with PMHx of Depression, Anxiety, HLD, Throat cancer was BIBEMS from [facility] with Cough #Cough -Likely due to CAP given Fever (Rectal Temp 101), Cough productive of Green sputum, Left basilar crackles -CXR, Chest CT, Abd US Noted above -Flu Swab negative -Strep Pneumo and Legionella Urine Ag, Sputum/blood/urine Cx noted above -Continue Levaquin 750mg in ED (04/07) -IV NS @ 83 mls/hr -Duonebs [facility] and PRN -Chest PT #Weight Loss -In the setting of Dysphagia and Decreased Appetite -Continue Remeron -Speech/Swallow consulted, Appreciate Rec's -Dietary Rec's: Dysphagia Minced, Thin Liquids #Hx of Depression/Anxiety -Restarted Home dose Klonopin, Clozapine, Lexapro -Psych (Dr. Braga) consulted, Appreciate rec's #FEN -IV NS @ 83 -Lytes WNL -Dysphagia Minced, Thin Liquids #PPx -Lovenox Dispo: Admit to Med-Surg Visit type - Emergency Visit Emergency Visit: Yes ED Registration Date: 04/07/18 Care time: The patient presented to the Emergency Department on the above date and was hospitalized for further evaluation of their emergent condition. - New Patient This patient is new to me today: No - Critical Care Critical Care patient: No - Discharge Referral Referred to [facility] Med P.C.: No
[2018-04-09] MEDS: SODIUM CHLORIDE 1,000 ML IV SCH (20:58)
[2018-04-09] MEDS: MIRTAZAPINE 15 MG TABLET (FP) PO SCH (21:29)
[2018-04-09] MEDS ORDERED: cloZAPine 100 MG TABLET PO ONE (23:30)
[2018-04-10] MEDS: ALBUTEROL SO4 2.5/IPRATROPIUM 0.5 INH SOL 3 ML VIAL.NEB. NEB SCH ×4 (08:05→20:05)
[2018-04-10] MEDS: SODIUM CHLORIDE 1,000 ML IV SCH (09:34)
[2018-04-10] MEDS: clonazePAM 0.5 MG TABLET PO SCH ×2 (09:35→21:18)
[2018-04-10] MEDS: ENOXAPARIN NA (PORCINE) 40 MG/0.4 ML DISP.SYRIN SQ SCH (09:35)
[2018-04-10] MEDS: ESCITALOPRAM OXALATE 10 MG TABLET (FP) PO SCH (09:35)
[2018-04-10 10:59] LABS: BASO % 0.3 % (0-2.0); HEMATOCRIT 36.5 % (35.4-49); HEMOGLOBIN 12.6 GM/dL (11.7-16.9); LYMPH % 13.7 % (8-40); MCH 33.4 pg (25.7-33.7); MCHC 34.5 g/dl (32.0-35.9); MEAN CELL VOLUME 96.7 fl (80-96); MEAN PLT VOLUME 7.3 fl (7.5-11.1); MONO % 5.2 % (3.8-10.2); NEUT % 79.8 % (42.8-82.8); PLATELET COUNT 256 K/MM3 (134-434); RBC 3.77 M/mm3 (4.00-5.60); WHITE BLOOD COUNT 5.9 K/mm3 (4.0-10.0)
[2018-04-10] MEDS ORDERED: cloZAPine 100 MG TABLET PO SCH (11:22)
[2018-04-10 11:52] LABS: ALBUMIN 2.8 g/dl (3.4-5.0); ALK PHOS 81 U/L (45-117); ANION GAP 5 MMOL/L (8-16); BILIRUBIN,TOTAL 0.4 mg/dL (0.2-1); BLOOD UREA NITROGEN 14 mg/dL (7-18); CALCIUM 8.1 mg/dL (8.5-10.1); CHLORIDE 109 mmol/L (98-107); CO2 30 mmol/L (21-32); CREATININE 0.7 mg/dL (0.55-1.3); GLUCOSE,RANDOM 133 mg/dL (74-106); MAGNESIUM 2.1 mg/dL (1.8-2.4); PHOSPHOROUS 2.6 mg/dL (2.5-4.9); POTASSIUM 4.1 mmol/L (3.5-5.1); SGOT/AST 14 U/L (15-37); SGPT/ALT 14 U/L (13-61); SODIUM 144 mmol/L (136-145); TOT PROT 5.7 g/dl (6.4-8.2)
[2018-04-10] MEDS ORDERED: PT OWN MED DRAWER 7, Y5N ONE ×2 (12:04→20:48)
[2018-04-10] MEDS: cloZAPine 25 MG TABLET PO SCH (12:07)
--- NOTE | 2018-04-10 12:56 | PN ---
Teaching Attending Note Name of Resident: Orly Pond ATTENDING PHYSICIAN STATEMENT I saw and evaluated the patient. I reviewed the resident's note and discussed the case with the resident. I agree with the resident's findings and plan as documented. SUBJECTIVE: no pain , SOB is better , had fever last night . feels stronger OBJECTIVE: NAD, flat affect, minimal eye contact today . cachectic. CV: RRR. no MRG Lungs: CTAB Abd: soft, Nt, ND , NL Bs. Ext: no edema ASSESSMENT AND PLAN: 67 y/o man with h/o depression , anxiety, ? tongue cancer resection who presented with cough, green sputum production, and chills x 1-2 weeks. he was found to have CAP 1- CAP: - cont levaquin, day 4 -fever last night , unlikely due to pNA treatment failure. - repeat blood cx , sent . - IVF . repeat cxray , check US - if diarrhea , will check c diff - out pt CT for f/u needed 2- Decreased appetite and weight loss. CT scan with no lung mass . age appropriate cancer screening needed as out pt. cont Remeron 3- Dysphagia: check MBS dysphagia diet with minced food and thin liquids 4- h/o depression and anxiety . cont meds 5- h/o ? tongue cancer. f/u with his surgeon /onc as out pt DVT PX HLOC due to fever. ASSESSMENT AND PLAN:
--- NOTE | 2018-04-10 13:32 | PN ---
Physical Exam: SUBJECTIVE: Patient seen and examined this morning at bedside. Fever overnight reached 101.8 and patient was given Tylenol. Continues to have feelings of Weakness, cough productive of yellow/green sputum and sore throat. Denies dysuria, diarrhea, nausea or vomiting. OBJECTIVE: Vital Signs Period Temp Pulse Resp BP Sys/Mosher Pulse Ox Last 24 Hr 97.8 F-101.8 F 68-98 20-20 101-118/63-80 GENERAL: A&Ox3, NAD, Lying comfortably in bed, Profoundly Chachectic with prominent Clavicles and prominent ribs HEAD: NCAT, Temporal wasting NECK: No JVD LUNGS: CTAB. No wheezes. HEART: Regular rate and rhythm, normal S1 and S2 without murmur ABDOMEN: Scaphoid Abdomen, Soft, nontender, not distended, + bowel sounds, no guarding, Pulsatile mass likely Aorta EXTREMITIES: 2+ pulses, Clubbing b/l upper extremities, No peripheral edema. No calf tenderness. Hommans sign negative NEUROLOGICAL: Cranial nerves II-XII intact. Normal speech. SKIN: Warm, dry, Diffuse scabbed over lesions with Dry scaly skin over Abdomen. Laboratory Results - last 24 hr 04/10/18 04/10/18 10:40 10:40 WBC 5.9 RBC 3.77 L Hgb 12.6 Hct 36.5 D MCV 96.7 H MCH 33.4 MCHC 34.5 RDW 14.0 Plt Count 256 D MPV 7.3 L Absolute Neuts (auto) 4.7 Neutrophils % 79.8 Lymphocytes % 13.7 Monocytes % 5.2 Eosinophils % 1.0 Basophils % 0.3 Nucleated RBC % 0 Sodium 144 Potassium 4.1 Chloride 109 H Carbon Dioxide 30 Anion Gap 5 L BUN 14 Creatinine 0.7 Creat Clearance w eGFR > 60 Random Glucose 133 H Calcium 8.1 L Phosphorus 2.6 Magnesium 2.1 Total Bilirubin 0.4 AST 14 L ALT 14 Alkaline Phosphatase 81 Total Protein 5.7 L Albumin 2.8 L Microbiology 04/07/18 16:05 Blood - Peripheral Venous Blood Culture - Preliminary NO GROWTH OBTAINED AFTER 48 HOURS, INCUBATION TO CONTINUE FOR 3 DAYS. 04/07/18 15:45 Blood - Peripheral Venous Blood Culture - Preliminary NO GROWTH OBTAINED AFTER 48 HOURS, INCUBATION TO CONTINUE FOR 3 DAYS. 04/07/18 16:33 Urine - Urine Clean Catch Urine Culture - Final NO GROWTH OBTAINED 04/07/18 16:57 Urine For Antigen Detection Legionella Antigen - Final 04/07/18 16:57 Urine For Antigen Detection Streptococcus pneumoniae Antigen (M - Final 04/07/18 16:26 Nasopharyngeal Swab Influenza Types A,B Antigen - Final 04/07/18 16:26 Nasopharyngeal Swab - Final Active Medications Acetaminophen (Tylenol -) 650 mg PO Q6H PRN PRN Reason: fever Last Admin: 04/09/18 20:56 Dose: 650 mg Albuterol/Ipratropium (Duoneb -) 1 amp NEB RQID [facility] Last Admin: 04/09/18 20:32 Dose: 1 amp Albuterol/Ipratropium (Duoneb -) 1 amp NEB Q4H PRN PRN Reason: SHORTNESS OF BREATH Clonazepam (Klonopin -) 1 mg PO BID [facility] Last Admin: 04/10/18 09:35 Dose: 1 mg Clozapine (Clozaril -) 50 mg PO DAILY [facility] Last Admin: 04/10/18 12:07 Dose: 50 mg Clozapine (Clozaril -) 200 mg PO [facility] Enoxaparin Sodium (Lovenox -) 40 mg SQ DAILY [facility] Last Admin: 04/10/18 09:35 Dose: 40 mg Escitalopram Oxalate (Lexapro -) 10 mg PO DAILY [facility] Last Admin: 04/10/18 09:35 Dose: 10 mg Sodium Chloride (Normal Saline -) 1,000 mls @ 83 mls/hr IV ASDIR [facility] Last Admin: 04/10/18 09:34 Dose: 83 mls/hr Levofloxacin (Levaquin 500 Mg Premixed Ivpb -) 500 mg in 100 mls @ 100 mls/hr IVPB Q24H [facility]; Protocol Last Admin: 04/09/18 16:43 Dose: 100 mls/hr Mirtazapine (Remeron -) 7.5 mg PO HS [facility] Last Admin: 04/09/18 21:29 Dose: 7.5 mg IMAGING: -CXR (04/07): 2 views of the chest have been submitted. Since 01/04/2018, again noted the chronic changes of the right base with elevated right hemidiaphragm and blunting of the right ankle. The mediastinum is not widened. A scoliosis with some degenerative changes. There are increased markings now at the left base and an early left base infiltrate with some atelectasis at the right base may be present. There is blunting of the right angle. -CXR (04/10): Since 04/07/2018, the patient has developed some atelectasis at the bases. An early left base infiltrate cannot be excluded. There is blunting of the right angle. There is right skin fold artifact. There are degenerative spine and shoulder changes. -Aorta US: Mild fusiform dilatation of the mid abdominal aorta measuring 2.4 cm in AP dimension. Both common iliac arteries were not measured. Normal color Doppler and duplex evaluation of the abdominal aorta and its bifurcation. -CT Chest without contrast: Moderately severe centrilobular emphysema. Atelectatic changes and infiltrates in the left lower lobe and lingular segment of the left upper lobe for which a follow-up CT scan of the chest in a couple weeks is needed to assess for change or resolution. Mild. Calcification of the coronary arteries. Possible small hiatus hernia. Mild compression fractures in the thoracic spine without compromise of the spinal canal. Significant deformity of the included portion of the left humeral head and neck suggestive of a fracture, of indeterminate age. Posterior dislocation of left humeral head relative to the glenoid fossa with degenerative changes. -DUPLEX: No evidence of deep venous thrombosis. ASSESSMENT/PLAN: 67 y/o M with PMHx of Depression, Anxiety, HLD, Throat cancer was BIBEMS from [facility] with Cough #Cough -Likely due to CAP given Fever (Rectal Temp 101), Cough productive of Green sputum, Left basilar crackles -CXR, Chest CT, Abd US Noted above -Flu Swab negative -Strep Pneumo and Legionella Urine Ag, Sputum/blood/urine Cx noted above -Continue Levaquin 750mg (04/07) -IV NS @ 83 mls/hr -Duonebs John and PRN -Chest PT -Fever overnight reached 101.8; Repeat Blood cx's and UA pending, CXR and Duplex b/l lower extremities noted above #Weight Loss -In the setting of Dysphagia and Decreased Appetite -Continue Remeron -Speech/Swallow consulted, Appreciate Rec's -Dietary Rec's: Dysphagia Minced, Thin Liquids -MBS Pending #Hx of Depression/Anxiety -Restarted Home dose Klonopin, Clozapine, Lexapro -Psych (Dr. Braga) consulted, Appreciate rec's #FEN -IV NS @ 83 -Lytes WNL -Dysphagia Minced, Thin Liquids #PPx -Lovenox Dispo: Med-Surg Visit type - Emergency Visit Emergency Visit: Yes ED Registration Date: 04/07/18 Care time: The patient presented to the Emergency Department on the above date and was hospitalized for further evaluation of their emergent condition. - New Patient This patient is new to me today: No - Critical Care Critical Care patient: No - Discharge Referral Referred to [facility] No
[2018-04-10] MEDS: MIRTAZAPINE 15 MG TABLET (FP) PO SCH (21:17)
[2018-04-11] MEDS: ALBUTEROL SO4 2.5/IPRATROPIUM 0.5 INH SOL 3 ML VIAL.NEB. NEB SCH ×3 (07:53→16:40)
--- NOTE | 2018-04-11 08:03 | PN ---
Teaching Attending Note Name of Resident: Orly Pond ATTENDING PHYSICIAN STATEMENT I saw and evaluated the patient. I reviewed the resident's note and discussed the case with the resident. I agree with the resident's findings and plan as documented. SUBJECTIVE: Patient is comfortable , but feels weak. Has no new complains. OBJECTIVE: Vital Signs Temperature 98.8 F 04/11/18 06:21 Pulse Rate 79 04/11/18 06:21 Respiratory Rate 20 04/11/18 06:21 Blood Pressure 103/72 04/11/18 06:21 O2 Sat by Pulse Oximetry (%) 96 04/09/18 09:00 GENERAL: A&Ox3, NAD, Lying comfortably in bed, Profoundly Chachectic with prominent Clavicles and prominent ribs HEAD: NCAT, Temporal wasting, EYES: EOMI EARS, NOSE, THROAT: Moist mucous membranes. NECK: No JVD LUNGS: CTAB. No wheezes. HEART: Regular rate and rhythm, normal S1 and S2 without murmur ABDOMEN: Scaphoid Abdomen, Soft, nontender, not distended, + bowel sounds, no guarding, Pulsatile mass likely Aorta EXTREMITIES: 2+ pulses, Clubbing b/l upper extremities, No peripheral edema. NEUROLOGICAL: Cranial nerves II-XII intact. Normal speech. SKIN: Warm, dry, Diffuse scabbed over lesions with Dry scaly skin over Abdomen. CBCD WBC 5.9 K/mm3 (4.0-10.0) 04/10/18 10:40 RBC 3.77 M/mm3 (4.00-5.60) L 04/10/18 10:40 Hgb 12.6 GM/dL (11.7-16.9) 04/10/18 10:40 Hct 36.5 % (35.4-49) D 04/10/18 10:40 MCV 96.7 fl (80-96) H 04/10/18 10:40 MCHC 34.5 g/dl (32.0-35.9) 04/10/18 10:40 RDW 14.0 % (11.9-15.9) 04/10/18 10:40 Plt Count 256 K/MM3 (134-434) D 04/10/18 10:40 MPV 7.3 fl (7.5-11.1) L 04/10/18 10:40 CMP Sodium 144 mmol/L (136-145) 04/10/18 10:40 Potassium 4.1 mmol/L (3.5-5.1) 04/10/18 10:40 Chloride 109 mmol/L (98-107) H 04/10/18 10:40 Carbon Dioxide 30 mmol/L (21-32) 04/10/18 10:40 Anion Gap 5 MMOL/L (8-16) L 04/10/18 10:40 BUN 14 mg/dL (7-18) 04/10/18 10:40 Creatinine 0.7 mg/dL (0.55-1.3) 04/10/18 10:40 Creat Clearance w eGFR > 60 (>60) 04/10/18 10:40 Random Glucose 133 mg/dL (74-106) H 04/10/18 10:40 Calcium 8.1 mg/dL (8.5-10.1) L 04/10/18 10:40 Total Bilirubin 0.4 mg/dL (0.2-1) 04/10/18 10:40 AST 14 U/L (15-37) L 04/10/18 10:40 ALT 14 U/L (13-61) 04/10/18 10:40 Alkaline Phosphatase 81 U/L (45-117) 04/10/18 10:40 Total Protein 5.7 g/dl (6.4-8.2) L 04/10/18 10:40 Albumin 2.8 g/dl (3.4-5.0) L 04/10/18 10:40 CARDIAC ENZYMES Troponin I < 0.02 ng/ml (0.00-0.05) 04/07/18 15:36 Current Medications Generic Name Dose Route Start Last Admin Trade Name Freq PRN Reason Stop Dose Admin Acetaminophen 650 mg 04/08/18 18:32 04/09/18 20:56 Tylenol - PO 650 mg Q6H PRN Administration fever Albuterol/Ipratropium 1 amp 04/07/18 20:00 04/11/18 07:53 Duoneb - NEB 1 amp RQID [facility] Administration Albuterol/Ipratropium 1 amp 04/07/18 18:48 Duoneb - NEB Q4H PRN SHORTNESS OF BREATH Clonazepam 1 mg 04/07/18 22:00 04/10/18 21:18 Klonopin - PO 1 mg BID [facility] Administration Clozapine 50 mg 04/08/18 10:00 04/10/18 12:07 Clozaril - PO 50 mg DAILY [facility] Administration Clozapine 200 mg 04/10/18 11:22 04/10/18 21:17 Clozaril - PO 200 mg HS [facility] Administration Enoxaparin Sodium 40 mg 04/07/18 19:00 04/10/18 09:35 Lovenox - SQ 40 mg DAILY [facility] Administration Escitalopram Oxalate 10 mg 04/08/18 10:00 04/10/18 09:35 Lexapro - PO 10 mg DAILY [facility] Administration Sodium Chloride 1,000 mls @ 83 mls/hr 04/07/18 18:45 04/10/18 09:34 Normal Saline - IV 83 mls/hr ASDIR [facility] Administration Levofloxacin 500 mg in 100 mls @ 100 mls/hr 04/08/18 16:00 04/10/18 16:17 Levaquin 500 Mg Premixed Ivpb - IVPB 100 mls/hr Q24H [facility] Administration Protocol Mirtazapine 7.5 mg 04/08/18 22:00 04/10/18 21:17 Remeron - PO 7.5 mg HS [facility] Administration Home Medications Medication Instructions Recorded Clonazepam [Klonopin] 1 tab PO BID 04/07/18 Clozapine 200 mg PO HS 04/07/18 Clozapine [Versacloz] 50 mg PO DAILY 04/07/18 Escitalopram Oxalate [Lexapro -] 10 mg PO DAILY 04/07/18 ASSESSMENT AND PLAN: 67 y/o man with h/o depression , anxiety, ? tongue cancer resection who presented with cough, green sputum production, and chills x 1-2 weeks. he was found to have CAP # CAP: cont levaquin, day 5/7 , EKG is done not prolonged , repeat blood cx , sent . - IVF . repeat cxray , check US , if diarrhea , will check c diff - out pt CT for f/u needed # Decreased appetite and weight loss. CT scan with no lung mass . age appropriate cancer screening needed as out pt. cont Remeron # Dysphagia: check MBS ,dysphagia diet with minced food and thin liquids # h/o depression and anxiety . cont meds # Hx of tongue cancer. f/u with his surgeon /onc as out pt DVT PX : Lovenox sq waiting for placement
[2018-04-11 09:48] LABS: URINE APPEARANCE CLEAR; URINE BILIRUBIN NEGATIVE (<2.0 mg/dL); URINE COLOR COLORLESS; URINE GLUCOSE (UA) NEGATIVE (NEGATIVE); URINE KETONE NEGATIVE (NEGATIVE); URINE LEUK ESTERASE NEGATIVE (NEGATIVE); URINE NITRITE NEGATIVE (NEGATIVE); URINE PROTEIN NEGATIVE (NEGATIVE); URINE UROBILINOGEN NEGATIVE mg/dL (0.2-1.0)
[2018-04-11] MEDS: clonazePAM 0.5 MG TABLET PO SCH (10:28)
[2018-04-11] MEDS: cloZAPine 25 MG TABLET PO SCH (10:28)
[2018-04-11] MEDS: ESCITALOPRAM OXALATE 10 MG TABLET (FP) PO SCH (10:28)
[2018-04-11] MEDS: ENOXAPARIN NA (PORCINE) 40 MG/0.4 ML DISP.SYRIN SQ SCH (10:29)
[2018-04-11] MEDS ORDERED: NICOTINE 7 MG/24 HOURS TOPICAL PATCH TD SCH (11:15)
[2018-04-11 11:31] VITALS: BP 106/69; PULSE 95; TEMP 97.8
--- NOTE | 2018-04-11 14:06 | PN ---
Physical Exam: SUBJECTIVE: Patient seen and examined this morning at bedside. Cough has improved and no feelings of SOB. Denies fevers, chills, chest pain, nausea, vomiting, diarrhea, constipation. OBJECTIVE: Vital Signs Period Temp Pulse Resp BP Sys/Mosher Pulse Ox Last 24 Hr 97.8 F-99.3 F 74-95 18-20 103-106/59-72 GENERAL: A&Ox3, NAD, Lying comfortably in bed, Profoundly Chachectic with prominent Clavicles and prominent ribs HEAD: NCAT, Temporal wasting NECK: No JVD LUNGS: CTAB. No wheezes. HEART: Regular rate and rhythm, normal S1 and S2 without murmur ABDOMEN: Scaphoid Abdomen, Soft, nontender, not distended, + bowel sounds, no guarding, Pulsatile mass likely Aorta EXTREMITIES: 2+ pulses, Clubbing b/l upper extremities, No peripheral edema. NEUROLOGICAL: Cranial nerves II-XII intact. Normal speech. SKIN: Warm, dry, Diffuse scabbed over lesions with Dry scaly skin over Abdomen. Laboratory Results - last 24 hr 04/11/18 09:00 Urine Color Colorless Urine Appearance Clear Urine pH 8.0 D Ur Specific [employer] 1.004 L Urine Protein Negative Urine Glucose (UA) Negative Urine Ketones Negative Urine Blood Negative Urine Nitrite Negative Urine Bilirubin Negative Urine Urobilinogen Negative Ur Leukocyte Esterase Negative Microbiology 04/10/18 07:20 Blood - Peripheral Venous Blood Culture - Preliminary NO GROWTH OBTAINED AFTER 24 HOURS, INCUBATION TO CONTINUE FOR 4 DAYS. 04/10/18 06:40 Blood - Peripheral Venous Blood Culture - Preliminary NO GROWTH OBTAINED AFTER 24 HOURS, INCUBATION TO CONTINUE FOR 4 DAYS. 04/07/18 16:05 Blood - Peripheral Venous Blood Culture - Preliminary NO GROWTH OBTAINED AFTER 72 HOURS, INCUBATION TO CONTINUE FOR 2 DAYS. 04/07/18 15:45 Blood - Peripheral Venous Blood Culture - Preliminary NO GROWTH OBTAINED AFTER 72 HOURS, INCUBATION TO CONTINUE FOR 2 DAYS. 04/07/18 16:33 Urine - Urine Clean Catch Urine Culture - Final NO GROWTH OBTAINED 04/07/18 16:57 Urine For Antigen Detection Legionella Antigen - Final 04/07/18 16:57 Urine For Antigen Detection Streptococcus pneumoniae Antigen (M - Final 04/07/18 16:26 Nasopharyngeal Swab Influenza Types A,B Antigen - Final 04/07/18 16:26 Nasopharyngeal Swab - Final Active Medications Acetaminophen (Tylenol -) 650 mg PO Q6H PRN PRN Reason: fever Last Admin: 04/09/18 20:56 Dose: 650 mg Albuterol/Ipratropium (Duoneb -) 1 amp NEB RQID [facility] Last Admin: 04/11/18 12:41 Dose: 1 amp Albuterol/Ipratropium (Duoneb -) 1 amp NEB Q4H PRN PRN Reason: SHORTNESS OF BREATH Clonazepam (Klonopin -) 1 mg PO BID [facility] Last Admin: 04/11/18 10:28 Dose: 1 mg Clozapine (Clozaril -) 50 mg PO DAILY [facility] Last Admin: 04/11/18 10:28 Dose: 50 mg Clozapine (Clozaril -) 200 mg PO HS [facility] Last Admin: 04/10/18 21:17 Dose: 200 mg Enoxaparin Sodium (Lovenox -) 40 mg SQ DAILY [facility] Last Admin: 04/11/18 10:29 Dose: 40 mg Escitalopram Oxalate (Lexapro -) 10 mg PO DAILY [facility] Last Admin: 04/11/18 10:28 Dose: 10 mg Sodium Chloride (Normal Saline -) 1,000 mls @ 83 mls/hr IV ASDIR [facility] Last Admin: 04/10/18 09:34 Dose: 83 mls/hr Levofloxacin (Levaquin 500 Mg Premixed Ivpb -) 500 mg in 100 mls @ 100 mls/hr IVPB Q24H [facility]; Protocol Last Admin: 04/10/18 16:17 Dose: 100 mls/hr Mirtazapine (Remeron -) 7.5 mg PO HS [facility] Last Admin: 04/10/18 21:17 Dose: 7.5 mg Nicotine (Nicoderm Patch -) 7 mg TD DAILY [facility] IMAGING: -CXR (04/07): 2 views of the chest have been submitted. Since 01/04/2018, again noted the chronic changes of the right base with elevated right hemidiaphragm and blunting of the right ankle. The mediastinum is not widened. A scoliosis with some degenerative changes. There are increased markings now at the left base and an early left base infiltrate with some atelectasis at the right base may be present. There is blunting of the right angle. -CXR (04/10): Since 04/07/2018, the patient has developed some atelectasis at the bases. An early left base infiltrate cannot be excluded. There is blunting of the right angle. There is right skin fold artifact. There are degenerative spine and shoulder changes. -Aorta US: Mild fusiform dilatation of the mid abdominal aorta measuring 2.4 cm in AP dimension. Both common iliac arteries were not measured. Normal color Doppler and duplex evaluation of the abdominal aorta and its bifurcation. -CT Chest without contrast: Moderately severe centrilobular emphysema. Atelectatic changes and infiltrates in the left lower lobe and lingular segment of the left upper lobe for which a follow-up CT scan of the chest in a couple weeks is needed to assess for change or resolution. Mild. Calcification of the coronary arteries. Possible small hiatus hernia. Mild compression fractures in the thoracic spine without compromise of the spinal canal. Significant deformity of the included portion of the left humeral head and neck suggestive of a fracture, of indeterminate age. Posterior dislocation of left humeral head relative to the glenoid fossa with degenerative changes. -DUPLEX: No evidence of deep venous thrombosis. ASSESSMENT/PLAN: 67 y/o M with PMHx of Depression, Anxiety, HLD, Throat cancer was BIBEMS from [facility] with Cough #Cough -Likely due to CAP given Fever (Rectal Temp 101), Cough productive of Green sputum, Left basilar crackles -Fever 2 nights ago reached 101.8; Repeat workup negative so far -CXR, Chest CT, Abd US Noted above -Flu Swab negative -Strep Pneumo and Legionella Urine Ag, Sputum/blood/urine Cx noted above -Continue Levaquin 750mg (started on 04/07) -IV NS @ 83 mls/hr -Dufredisbs John and PRN -Chest PT #Weight Loss -In the setting of Dysphagia and Decreased Appetite -Continue Remeron -Speech/Swallow consulted, Appreciate Rec's -Dietary Rec's: Chopped, Thin Liquids -MBS noted #Hx of Depression/Anxiety -Restarted Home dose Klonopin, Clozapine, Lexapro -Psych (Dr. Braga) consulted, Appreciate rec's #FEN -IV NS @ 83 -Lytes WNL -Chopped diet, Thin Liquids #PPx -Lovenox Dispo: Med-Surg
--- NOTE | 2018-04-11 15:19 | EKG ---
Test Reason : Blood Pressure : / mmHG Vent. Rate : 087 BPM Atrial Rate : 087 BPM P-R Int : 100 ms QRS Dur : 088 ms QT Int : 372 ms P-R-T Axes : 008 -53 053 degrees QTc Int : 447 ms SINUS RHYTHM WITH SHORT UT LEFT AXIS DEVIATION LOW VOLTAGE QRS ABNORMAL ECG WHEN COMPARED WITH ECG OF 24-MAR-2016 17:40, UT INTERVAL HAS DECREASED Confirmed by PRATKI MAE, JHON ([id number]) on 04/11/2018 3:18:57 PM Referred By: NIKKI DANIEL Confirmed By:JHON CHRISTIE MD
[2018-04-11] MEDS: SODIUM CHLORIDE 1,000 ML IV SCH (15:45)
--- NOTE | 2018-04-11 16:28 | DS ---
Physical Exam: SUBJECTIVE: Patient seen and examined this morning at bedside. Cough has improved and no feelings of SOB. Denies fevers, chills, chest pain, nausea, vomiting, diarrhea, constipation. OBJECTIVE: Vital Signs Period Temp Pulse Resp BP Sys/Mosher Pulse Ox Last 24 Hr 97.8 F-99.3 F 74-95 18-20 103-106/66-72 PHYSICAL EXAM GENERAL: A&Ox3, NAD, Lying comfortably in bed, Profoundly Chachectic with prominent Clavicles and prominent ribs HEAD: NCAT, Temporal wasting NECK: No JVD LUNGS: CTAB. No wheezes. HEART: Regular rate and rhythm, normal S1 and S2 without murmur ABDOMEN: Scaphoid Abdomen, Soft, nontender, not distended, + bowel sounds, no guarding, Pulsatile mass likely Aorta EXTREMITIES: 2+ pulses, Clubbing b/l upper extremities, No peripheral edema. NEUROLOGICAL: Cranial nerves II-XII intact. Normal speech. SKIN: Warm, dry, Diffuse scabbed over lesions with Dry scaly skin over Abdomen. LABS Laboratory Last Values WBC 5.9 K/mm3 (4.0-10.0) 04/10/18 10:40 RBC 3.77 M/mm3 (4.00-5.60) L 04/10/18 10:40 Hgb 12.6 GM/dL (11.7-16.9) 04/10/18 10:40 Hct 36.5 % (35.4-49) D 04/10/18 10:40 MCV 96.7 fl (80-96) H 04/10/18 10:40 MCH 33.4 pg (25.7-33.7) 04/10/18 10:40 MCHC 34.5 g/dl (32.0-35.9) 04/10/18 10:40 RDW 14.0 % (11.9-15.9) 04/10/18 10:40 Plt Count 256 K/MM3 (134-434) D 04/10/18 10:40 MPV 7.3 fl (7.5-11.1) L 04/10/18 10:40 Absolute Neuts (auto) 4.7 K/mm3 (1.5-8.0) 04/10/18 10:40 Neutrophils % 79.8 % (42.8-82.8) 04/10/18 10:40 Lymphocytes % 13.7 % (8-40) 04/10/18 10:40 Monocytes % 5.2 % (3.8-10.2) 04/10/18 10:40 Eosinophils % 1.0 % (0-4.5) 04/10/18 10:40 Basophils % 0.3 % (0-2.0) 04/10/18 10:40 Nucleated RBC % 0 % (0-0) 04/10/18 10:40 VBG pH 7.38 (7.32-7.42) 04/07/18 15:36 POC VBG pCO2 52.5 mmHg (38-52) H 04/07/18 15:36 POC VBG pO2 25.0 mmHg (28-48) L 04/07/18 15:36 Mixed VBG HCO3 30.2 meq/L (19-25) H 04/07/18 15:36 Sodium 144 mmol/L (136-145) 04/10/18 10:40 Potassium 4.1 mmol/L (3.5-5.1) 04/10/18 10:40 Chloride 109 mmol/L (98-107) H 04/10/18 10:40 Carbon Dioxide 30 mmol/L (21-32) 04/10/18 10:40 Anion Gap 5 MMOL/L (8-16) L 04/10/18 10:40 BUN 14 mg/dL (7-18) 04/10/18 10:40 Creatinine 0.7 mg/dL (0.55-1.3) 04/10/18 10:40 Creat Clearance w eGFR > 60 (>60) 04/10/18 10:40 Random Glucose 133 mg/dL (74-106) H 04/10/18 10:40 Lactic Acid 0.9 mmol/L (0.4-2.0) 04/07/18 15:35 Calcium 8.1 mg/dL (8.5-10.1) L 04/10/18 10:40 Phosphorus 2.6 mg/dL (2.5-4.9) 04/10/18 10:40 Magnesium 2.1 mg/dL (1.8-2.4) 04/10/18 10:40 Total Bilirubin 0.4 mg/dL (0.2-1) 04/10/18 10:40 AST 14 U/L (15-37) L 04/10/18 10:40 ALT 14 U/L (13-61) 04/10/18 10:40 Alkaline Phosphatase 81 U/L (45-117) 04/10/18 10:40 Troponin I < 0.02 ng/ml (0.00-0.05) 04/07/18 15:36 Total Protein 5.7 g/dl (6.4-8.2) L 04/10/18 10:40 Albumin 2.8 g/dl (3.4-5.0) L 04/10/18 10:40 Urine Color Colorless 04/11/18 09:00 Urine Appearance Clear 04/11/18 09:00 Urine pH 8.0 (5.0-8.0) D 04/11/18 09:00 Ur Specific [place] 1.004 (1.010-1.035) L 04/11/18 09:00 Urine Protein Negative (NEGATIVE) 04/11/18 09:00 Urine Glucose (UA) Negative (NEGATIVE) 04/11/18 09:00 Urine Ketones Negative (NEGATIVE) 04/11/18 09:00 Urine Blood Negative (NEGATIVE) 04/11/18 09:00 Urine Nitrite Negative (NEGATIVE) 04/11/18 09:00 Urine Bilirubin Negative (<2.0 mg/dL) 04/11/18 09:00 Urine Urobilinogen Negative mg/dL (0.2-1.0) 04/11/18 09:00 Ur Leukocyte Esterase Negative (NEGATIVE) 04/11/18 09:00 Urine WBC (Auto) 2 /hpf (3-5) 04/07/18 16:33 Urine RBC (Auto) 2 /hpf (0-3) 04/07/18 16:33 Ur Epithelial Cells Rare /HPF (FEW) 04/07/18 16:33 Urine Mucus Many 04/07/18 16:33 Microbiology 04/07/18 16:05 Blood - Peripheral Venous Blood Culture - Preliminary NO GROWTH OBTAINED AFTER 96 HOURS, INCUBATION TO CONTINUE FOR 1 DAYS. 04/07/18 15:45 Blood - Peripheral Venous Blood Culture - Preliminary NO GROWTH OBTAINED AFTER 96 HOURS, INCUBATION TO CONTINUE FOR 1 DAYS. 04/10/18 07:20 Blood - Peripheral Venous Blood Culture - Preliminary NO GROWTH OBTAINED AFTER 24 HOURS, INCUBATION TO CONTINUE FOR 4 DAYS. 04/10/18 06:40 Blood - Peripheral Venous Blood Culture - Preliminary NO GROWTH OBTAINED AFTER 24 HOURS, INCUBATION TO CONTINUE FOR 4 DAYS. 04/07/18 16:33 Urine - Urine Clean Catch Urine Culture - Final NO GROWTH OBTAINED 04/07/18 16:57 Urine For Antigen Detection Legionella Antigen - Final 04/07/18 16:57 Urine For Antigen Detection Streptococcus pneumoniae Antigen (M - Final 04/07/18 16:26 Nasopharyngeal Swab Influenza Types A,B Antigen - Final 04/07/18 16:26 Nasopharyngeal Swab - Final IMAGING: -CXR (04/07): 2 views of the chest have been submitted. Since 01/04/2018, again noted the chronic changes of the right base with elevated right hemidiaphragm and blunting of the right ankle. The mediastinum is not widened. A scoliosis with some degenerative changes. There are increased markings now at the left base and an early left base infiltrate with some atelectasis at the right base may be present. There is blunting of the right angle. -CXR (04/10): Since 04/07/2018, the patient has developed some atelectasis at the bases. An early left base infiltrate cannot be excluded. There is blunting of the right angle. There is right skin fold artifact. There are degenerative spine and shoulder changes. -Aorta US: Mild fusiform dilatation of the mid abdominal aorta measuring 2.4 cm in AP dimension. Both common iliac arteries were not measured. Normal color Doppler and duplex evaluation of the abdominal aorta and its bifurcation. -CT Chest without contrast: Moderately severe centrilobular emphysema. Atelectatic changes and infiltrates in the left lower lobe and lingular segment of the left upper lobe for which a follow-up CT scan of the chest in a couple weeks is needed to assess for change or resolution. Mild. Calcification of the coronary arteries. Possible small hiatus hernia. Mild compression fractures in the thoracic spine without compromise of the spinal canal. Significant deformity of the included portion of the left humeral head and neck suggestive of a fracture, of indeterminate age. Posterior dislocation of left humeral head relative to the glenoid fossa with degenerative changes. -DUPLEX: No evidence of deep venous thrombosis. HOSPITAL COURSE: Date of Admission:04/07/18 Date of Discharge: 04/11/18 67 y/o M was BIBEMS from [facility] with Cough productive of Green Sputum. On admission he was found to be febrile. Imaging and Cultures were done (Noted above). Patient completed a 5 day course of antibiotics. Patient had decreased appetite for which he was started on Remeron, Speech and swallow was consulted and an MBS was done (Rec's in DC Plan). Psychiatry was also consulted. Patient was discharged to SNF. Minutes to complete discharge: 38 Discharge Summary Reason For Visit: ACUTE EXACERBATION OF CHRONIC OBSTRUCTIVE Current Active Problems COPD exacerbation (Acute) Fracture of head of humerus (Acute) Condition: Good - Instructions Diet, Activity, Other Instructions: You presented to the hospital with Cough and were admitted for Pneumonia. You completed a 5 day course of antibiotics. Please follow up with the following physicians 1. Pulmonary (Dr. Kaye) in one week 2. Psychiatry (Dr. Braga) in one week 3. PCP (Dr. Buchanan) in one week as you may need to have your Aorta further evaluate as one of your images reveal dilation 4. Orthopedics (Dr. Tyrell Kelsey) in one week as one of your images revealed Left Humeral Head fracture You are being discharged on Levaquin to be take one time tomorrow. You are also being discharged on Remron to be take once before bed time every night. Dietary Recommendations: Chopped diet, Thin Liquids Continue all your other medications as prescribed Please return to the ER if you have any signs or symptoms of chest pain, shortness of breath, uncontrollable fever, chills, nausea, vomiting, numbness, tingling, or weakness in any part of your body, changes in vision, or slurred speech. Please return to the ER if symptoms persist, worsen, or new symptoms arise. Referrals: Kristi Braga MD [Staff Physician] - 1 Week Tyrell Kelsey DO [Staff Physician] - 1 Week David Kaye MD, MD [Staff Physician] - 1 Week - Home Medications Comprehensive Discharge Medication List: Ambulatory Orders Clonazepam [Klonopin] 1 tab PO BID 04/07/18 Clozapine 200 mg PO HS 04/07/18 Clozapine [Versacloz] 50 mg PO DAILY 04/07/18 Escitalopram Oxalate [Lexapro -] 10 mg PO DAILY 04/07/18 Albuterol 2.5/Ipratropium 0.5 [Duoneb -] 1 amp NEB RQID #1 amp 04/11/18 Mirtazapine [Remeron -] 7.5 mg PO HS #30 tablet 04/11/18 Miscellaneous Medical Supply [Outpatient Order] 1 each ASDIR #1 misc This patient is new to me today: No Emergency Visit: Yes ED Registration Date: 04/07/18 Care time: The patient presented to the Emergency Department on the above date and was hospitalized for further evaluation of their emergent condition. Critical Care patient: No - Discharge Referral Referred to [facility] Med [facility] No
== END 2018-04-11 17:30 | DRG 193 ==
LOC: JER 14:01 → JERBED 17:31 → J6S 21:56
PROVIDERS: ADMIT Internal Medicine; ATTEND Internal Medicine
DX: J18.9 Pneumonia, unspecified organism (principal); E43 Unspecified severe protein-calorie malnutrition; J44.1 Chronic obstructive pulmonary disease with (acute) exacerbation; R64 Cachexia; Z68.1 Body mass index [BMI] 19.9 or less, adult; J98.11 Atelectasis; M48.54XA Collapsed vertebra, not elsewhere classified, thoracic region, initial encounter for fracture; F20.5 Residual schizophrenia; F41.8 Other specified anxiety disorders; E78.5 Hyperlipidemia, unspecified; C02.9 Malignant neoplasm of tongue, unspecified; R13.10 Dysphagia, unspecified; M24.322 Pathological dislocation of left elbow, not elsewhere classified; Z87.891 Personal history of nicotine dependence
CPT/HCPCS: 36415; 71045-TC-FY; 71250-TC; 74230-TC-FY; 76775-TC; 80053; 81003; 81015; 82803; 83605; 83735; 84100; 84132; 84484; 85025; 87040; 87086; 87804; 87899; 92611-GN; 93005; 93010; 93970-TC; 94640; 97116-GP; 97161-GP; 99284-25; J7030

== ENCOUNTER 2022-09-28 19:17 | Inpatient (IN) | payer OTHER ==
[2022-09-28 20:38] LABS: VENOUS BASE EXCESS 2.2 mmol/L (-2-2); VENOUS O2 SATURATION 43.7 % (70-80); VENOUS PCO2 60.3 mmHg (38-52); VENOUS PH 7.313 (7.310-7.410)
[2022-09-28 20:39] LABS: BASO % 0.8 % (0-2.0); EOS % 1.1 % (0-4.5); HEMATOCRIT 39.3 % (35.4-49); HEMOGLOBIN 13.7 GM/dL (11.7-16.9); LYMPH % 16.6 % (8-40); MCHC 34.8 g/dl (32.0-35.9); MEAN PLT VOLUME 7.7 fl (7.5-11.1); MONO % 5.7 % (3.8-10.2); NEUT % 75.8 % (42.8-82.8); PLATELET COUNT 209 10^3/uL (134-434); RBC 4.14 M/mm3 (4.00-5.60); RDW 14.2 % (11.9-15.9); WHITE BLOOD COUNT 5.5 K/mm3 (4.0-10.0)
[2022-09-28 20:48] LABS: INR 1.12 (0.83-1.09)
[2022-09-28 20:51] LABS: ACTIVATED PTT 34.5 SECONDS (25.2-36.5)
[2022-09-28 20:53] LABS: URINE APPEARANCE CLEAR; URINE BILIRUBIN NEGATIVE (NEGATIVE); URINE COLOR YELLOW; URINE GLUCOSE (UA) NEGATIVE (NEGATIVE); URINE KETONE NEGATIVE (NEGATIVE); URINE LEUK ESTERASE NEGATIVE (NEGATIVE); URINE NITRITE NEGATIVE (NEGATIVE); URINE PROTEIN NEGATIVE (NEGATIVE); URINE UROBILINOGEN 0.2 mg/dL (0.2-1.0)
[2022-09-28 20:55] LABS: POTASSIUM 4.3 mmol/L (3.5-5.1)
[2022-09-28 20:57] LABS: CALCIUM 8.9 mg/dL (8.5-10.1)
[2022-09-28 20:58] LABS: BLOOD UREA NITROGEN 20.5 mg/dL (7-18); MAGNESIUM 2.2 mg/dL (1.8-2.4)
[2022-09-28 21:01] LABS: CREATININE 1.1 mg/dL (0.55-1.3)
[2022-09-28 21:03] LABS: BILIRUBIN,TOTAL 0.3 mg/dL (0.2-1); TOT PROT 6.6 g/dl (6.4-8.2)
[2022-09-28] MEDS ORDERED: LACTATED RINGERS SOLUTION 1000 ML INFUS.BAG IV ONE (21:23)
[2022-09-29] MEDS ORDERED: ALBUTEROL SO4 2.5/IPRATROPIUM 0.5 INH SOL 3 ML VIAL.NEB. NEB PRN (06:54)
[2022-09-29] MEDS ORDERED: [UNRECOGNIZED DRUG - OTHER] NS SCH (10:00)
[2022-09-29] MEDS ORDERED: CITALOPRAM HYDROBROMIDE 20 MG TABLET PO SCH (10:00)
[2022-09-29] MEDS ORDERED: AZELASTINE NS SCH (10:00)
[2022-09-29] MEDS ORDERED: FLUTICASONE NS SCH (10:00)
[2022-09-29] MEDS ORDERED: MONTELUKAST NA 10 MG TABLET PO SCH (10:00)
[2022-09-29] MEDS: cloZAPine 25 MG TABLET PO SCH (11:13)
[2022-09-29] MEDS: FLUTICASONE/UMECLIDIN/VILANTER(100-62.5-25 TRELEGY ELLIPTA) INAHLER IH SCH (12:27)
[2022-09-29] MEDS: cloZAPine 100 MG TABLET PO SCH (21:54)
[2022-09-29] MEDS: MIRTAZAPINE 15 MG TABLET (FP) PO SCH (21:54)
[2022-09-30] MEDS: ENOXAPARIN NA (PORCINE) 30 MG/0.3 ML DISP.SYRIN SQ SCH (09:50)
[2022-09-30] MEDS: FLUTICASONE/UMECLIDIN/VILANTER(100-62.5-25 TRELEGY ELLIPTA) INAHLER IH SCH (09:51)
[2022-09-30] MEDS: cloZAPine 25 MG TABLET PO SCH (09:51)
[2022-09-30] MEDS: MONTELUKAST NA 10 MG TABLET PO SCH (21:06)
[2022-09-30] MEDS: MIRTAZAPINE 15 MG TABLET (FP) PO SCH (21:06)
[2022-09-30] MEDS: cloZAPine 100 MG TABLET PO SCH (21:06)
[2022-10-01] MEDS: cloZAPine 25 MG TABLET PO SCH (09:28)
[2022-10-01] MEDS: FLUTICASONE/UMECLIDIN/VILANTER(100-62.5-25 TRELEGY ELLIPTA) INAHLER IH SCH (09:29)
[2022-10-01] MEDS: ENOXAPARIN NA (PORCINE) 30 MG/0.3 ML DISP.SYRIN SQ SCH (09:29)
[2022-10-01 09:37] LABS: POTASSIUM 4.9 mmol/L (3.5-5.1)
[2022-10-01 09:38] LABS: CALCIUM 9.2 mg/dL (8.5-10.1)
[2022-10-01 09:39] LABS: BLOOD UREA NITROGEN 22.8 mg/dL (7-18)
[2022-10-01 09:42] LABS: CREATININE 1.1 mg/dL (0.55-1.3)
[2022-10-01 09:49] LABS: BASO % 0.7 % (0-2.0); EOS % 0.7 % (0-4.5); HEMATOCRIT 40.1 % (35.4-49); HEMOGLOBIN 14.1 GM/dL (11.7-16.9); LYMPH % 13.1 % (8-40); MCH 33.4 pg (25.7-33.7); MCHC 35.2 g/dl (32.0-35.9); MEAN CELL VOLUME 94.9 fl (80-96); MEAN PLT VOLUME 7.6 fl (7.5-11.1); MONO % 4.2 % (3.8-10.2); NEUT % 81.3 % (42.8-82.8); PLATELET COUNT 212 10^3/uL (134-434); RBC 4.23 M/mm3 (4.00-5.60); RDW 14.1 % (11.9-15.9); WHITE BLOOD COUNT 5.6 K/mm3 (4.0-10.0)
[2022-10-01] MEDS: MIRTAZAPINE 15 MG TABLET (FP) PO SCH (21:13)
[2022-10-01] MEDS: MONTELUKAST NA 10 MG TABLET PO SCH (21:13)
[2022-10-01] MEDS: cloZAPine 100 MG TABLET PO SCH (21:14)
[2022-10-02] MEDS: cloZAPine 25 MG TABLET PO SCH (09:21)
[2022-10-02] MEDS: ENOXAPARIN NA (PORCINE) 30 MG/0.3 ML DISP.SYRIN SQ SCH (09:21)
[2022-10-02] MEDS: FLUTICASONE/UMECLIDIN/VILANTER(100-62.5-25 TRELEGY ELLIPTA) INAHLER IH SCH (09:22)
[2022-10-02 09:38] LABS: BASO % 0.8 % (0-2.0); HEMATOCRIT 44.4 % (35.4-49); HEMOGLOBIN 15.2 GM/dL (11.7-16.9); LYMPH % 13.8 % (8-40); MCH 32.4 pg (25.7-33.7); MCHC 34.2 g/dl (32.0-35.9); MEAN CELL VOLUME 94.8 fl (80-96); MEAN PLT VOLUME 6.9 fl (7.5-11.1); MONO % 6.3 % (3.8-10.2); NEUT % 78.1 % (42.8-82.8); PLATELET COUNT 256 10^3/uL (134-434); RBC 4.68 M/mm3 (4.00-5.60); RDW 14.4 % (11.9-15.9); WHITE BLOOD COUNT 7.7 K/mm3 (4.0-10.0)
[2022-10-02 10:02] LABS: CALCIUM 9.6 mg/dL (8.5-10.1)
[2022-10-02 10:03] LABS: ALBUMIN 4.3 g/dl (3.4-5.0); BLOOD UREA NITROGEN 23.3 mg/dL (7-18); MAGNESIUM 2.3 mg/dL (1.8-2.4)
[2022-10-02 10:06] LABS: CREATININE 1.1 mg/dL (0.55-1.3)
[2022-10-02 10:08] LABS: BILIRUBIN,TOTAL 0.6 mg/dL (0.2-1); TOT PROT 7.5 g/dl (6.4-8.2)
[2022-10-02 11:28] LABS: PHOSPHOROUS 3.8 mg/dL (2.5-4.9)
[2022-10-02 17:59] LABS: COCAINE, UR NEGATIVE (NEGATIVE); METHADONE, UR NEGATIVE (NEGATIVE); OPIATES, URI NEGATIVE (NEGATIVE); URINE BARBITURATES NEGATIVE (NEGATIVE)
[2022-10-02 18:00] LABS: PHENCYCLIDINE,URINE NEGATIVE (NEGATIVE); URINE BENZODIAZEPINES NEGATIVE (NEGATIVE)
[2022-10-02 18:05] LABS: URINE AMPHETAMINES NEGATIVE (NEGATIVE)
[2022-10-02] MEDS: cloZAPine 100 MG TABLET PO SCH (21:15)
[2022-10-02] MEDS: MONTELUKAST NA 10 MG TABLET PO SCH (21:16)
[2022-10-02] MEDS: MIRTAZAPINE 15 MG TABLET (FP) PO SCH (21:16)
[2022-10-03] MEDS: LIDOCAINE 5% TOPICAL PATCH TP SCH (09:10)
[2022-10-03] MEDS: FLUTICASONE/UMECLIDIN/VILANTER(100-62.5-25 TRELEGY ELLIPTA) INAHLER IH SCH (09:10)
[2022-10-03] MEDS ORDERED: ACETAMINOPHEN 325 MG TABLET (FP) PO ONE (10:00)
[2022-10-03 10:09] LABS: BASO % 0.2 % (0-2.0); EOS % 0.1 % (0-4.5); HEMATOCRIT 39.1 % (35.4-49); HEMOGLOBIN 13.7 GM/dL (11.7-16.9); LYMPH % 6.3 % (8-40); MCH 33.2 pg (25.7-33.7); MCHC 35.1 g/dl (32.0-35.9); MEAN CELL VOLUME 94.7 fl (80-96); MEAN PLT VOLUME 7.4 fl (7.5-11.1); MONO % 6.8 % (3.8-10.2); NEUT % 86.6 % (42.8-82.8); PLATELET COUNT 223 10^3/uL (134-434); RBC 4.14 M/mm3 (4.00-5.60); RDW 13.8 % (11.9-15.9); WHITE BLOOD COUNT 10.3 K/mm3 (4.0-10.0)
[2022-10-03] MEDS: ENOXAPARIN NA (PORCINE) 30 MG/0.3 ML DISP.SYRIN SQ SCH (10:13)
[2022-10-03] MEDS: cloZAPine 25 MG TABLET PO SCH (10:13)
[2022-10-03 10:56] LABS: POTASSIUM 4.4 mmol/L (3.5-5.1)
[2022-10-03 11:07] LABS: ALBUMIN 4.1 g/dl (3.4-5.0); BLOOD UREA NITROGEN 28.4 mg/dL (7-18); MAGNESIUM 2.4 mg/dL (1.8-2.4)
[2022-10-03 11:09] LABS: CREATININE 1.1 mg/dL (0.55-1.3)
[2022-10-03 11:11] LABS: BILIRUBIN,TOTAL 0.6 mg/dL (0.2-1); TOT PROT 6.8 g/dl (6.4-8.2)
[2022-10-03] MEDS ORDERED: SODIUM CHLORIDE 1,000 ML IV SCH (15:00)
[2022-10-03] MEDS: DOCUSATE SODIUM 100 MG CAPSULE (FP) PO SCH ×2 (15:59→21:17)
[2022-10-03] MEDS: cloZAPine 100 MG TABLET PO SCH (21:17)
[2022-10-03] MEDS: MONTELUKAST NA 10 MG TABLET PO SCH (21:17)
[2022-10-03] MEDS: LIDOCAINE PATCH REMOVAL MC SCH (21:17)
[2022-10-03] MEDS: MIRTAZAPINE 15 MG TABLET (FP) PO SCH (21:17)
[2022-10-03] MEDS: ACETAMINOPHEN 325 MG TABLET (FP) PO PRN (21:18)
[2022-10-03] MEDS: POLYETHYLENE GLYCOL (HEALTHYLAX) 3350 17 GM PACKET PO SCH (21:18)
[2022-10-04] MEDS: DOCUSATE SODIUM 100 MG CAPSULE (FP) PO SCH ×3 (05:16→21:13)
[2022-10-04 09:11] LABS: BASO % 0.5 % (0-2.0); EOS % 0.2 % (0-4.5); HEMATOCRIT 38.9 % (35.4-49); HEMOGLOBIN 13.7 GM/dL (11.7-16.9); LYMPH % 7.8 % (8-40); MCH 33.3 pg (25.7-33.7); MCHC 35.2 g/dl (32.0-35.9); MEAN CELL VOLUME 94.5 fl (80-96); MEAN PLT VOLUME 7.7 fl (7.5-11.1); MONO % 7.9 % (3.8-10.2); NEUT % 83.6 % (42.8-82.8); PLATELET COUNT 189 10^3/uL (134-434); RBC 4.12 M/mm3 (4.00-5.60); RDW 14.4 % (11.9-15.9); WHITE BLOOD COUNT 9.2 K/mm3 (4.0-10.0)
[2022-10-04] MEDS: ENOXAPARIN NA (PORCINE) 30 MG/0.3 ML DISP.SYRIN SQ SCH (09:15)
[2022-10-04] MEDS: LIDOCAINE 5% TOPICAL PATCH TP SCH (09:15)
[2022-10-04] MEDS: POLYETHYLENE GLYCOL (HEALTHYLAX) 3350 17 GM PACKET PO SCH ×2 (09:16→21:13)
[2022-10-04] MEDS: cloZAPine 25 MG TABLET PO SCH (09:16)
[2022-10-04] MEDS: FLUTICASONE/UMECLIDIN/VILANTER(100-62.5-25 TRELEGY ELLIPTA) INAHLER IH SCH (09:19)
[2022-10-04 09:28] LABS: POTASSIUM 4.3 mmol/L (3.5-5.1)
[2022-10-04 09:32] LABS: ALBUMIN 3.8 g/dl (3.4-5.0); BLOOD UREA NITROGEN 28.1 mg/dL (7-18); CALCIUM 8.8 mg/dL (8.5-10.1); MAGNESIUM 2.4 mg/dL (1.8-2.4)
[2022-10-04 09:36] LABS: BILIRUBIN,TOTAL 1.1 mg/dL (0.2-1); TOT PROT 6.5 g/dl (6.4-8.2)
[2022-10-04] MEDS: AMINO ACIDS/PROTEIN HYDROLYS 30 ML LIQUID.PKT PO SCH (17:09)
[2022-10-04] MEDS: cloZAPine 100 MG TABLET PO SCH (21:12)
[2022-10-04] MEDS: MONTELUKAST NA 10 MG TABLET PO SCH (21:13)
[2022-10-04] MEDS: MIRTAZAPINE 15 MG TABLET (FP) PO SCH (21:13)
[2022-10-04] MEDS: LIDOCAINE PATCH REMOVAL MC SCH (21:13)
[2022-10-04] MEDS: ACETAMINOPHEN 325 MG TABLET (FP) PO PRN (21:15)
[2022-10-05] MEDS: DOCUSATE SODIUM 100 MG CAPSULE (FP) PO SCH ×3 (06:36→21:27)
[2022-10-05] MEDS: AMINO ACIDS/PROTEIN HYDROLYS 30 ML LIQUID.PKT PO SCH ×2 (09:04→17:30)
[2022-10-05] MEDS: ENOXAPARIN NA (PORCINE) 30 MG/0.3 ML DISP.SYRIN SQ SCH (09:04)
[2022-10-05] MEDS: POLYETHYLENE GLYCOL (HEALTHYLAX) 3350 17 GM PACKET PO SCH ×2 (09:04→21:26)
[2022-10-05] MEDS: cloZAPine 25 MG TABLET PO SCH (09:05)
[2022-10-05] MEDS: LIDOCAINE 5% TOPICAL PATCH TP SCH (09:05)
[2022-10-05 09:06] LABS: BASO % 0.5 % (0-2.0); EOS % 0.5 % (0-4.5); HEMATOCRIT 38.3 % (35.4-49); HEMOGLOBIN 13.3 GM/dL (11.7-16.9); LYMPH % 9.2 % (8-40); MCH 33.2 pg (25.7-33.7); MCHC 34.8 g/dl (32.0-35.9); MEAN CELL VOLUME 95.3 fl (80-96); MEAN PLT VOLUME 8.1 fl (7.5-11.1); NEUT % 80.8 % (42.8-82.8); PLATELET COUNT 164 10^3/uL (134-434); RBC 4.02 M/mm3 (4.00-5.60); WHITE BLOOD COUNT 8.2 K/mm3 (4.0-10.0)
[2022-10-05] MEDS: FLUTICASONE/UMECLIDIN/VILANTER(100-62.5-25 TRELEGY ELLIPTA) INAHLER IH SCH (09:10)
[2022-10-05 09:33] LABS: POTASSIUM 4.2 mmol/L (3.5-5.1)
[2022-10-05 09:41] LABS: ALBUMIN 3.9 g/dl (3.4-5.0); BLOOD UREA NITROGEN 35.3 mg/dL (7-18); MAGNESIUM 2.2 mg/dL (1.8-2.4)
[2022-10-05 09:43] LABS: BILIRUBIN,TOTAL 0.9 mg/dL (0.2-1); TOT PROT 6.9 g/dl (6.4-8.2)
[2022-10-05] MEDS ORDERED: LORazepam 2 MG/ML SDV VIAL IVPUSH ONE (11:19)
[2022-10-05 13:28] VITALS: BMI 15.5
[2022-10-05] MEDS: ASCORBIC ACID 250 MG TABLET (FP) PO SCH (13:33)
[2022-10-05] MEDS: MULTIVITAMINS (DAILY MVI) TABLET (FP) PO SCH (13:33)
[2022-10-05] MEDS ORDERED: LORazepam 2 MG TABLET PO ONE (14:36)
[2022-10-05] MEDS ORDERED: LORazepam 1 MG TABLET PO ONE (14:45)
[2022-10-05] MEDS ORDERED: HALOPERIDOL LACTATE 5 MG/ML IM ONE (15:36)
[2022-10-05] MEDS ORDERED: OLANZapine 5 MG TABLET PO ONE (16:23)
[2022-10-05] MEDS: MIRTAZAPINE 15 MG TABLET (FP) PO SCH (21:26)
[2022-10-05] MEDS: OLANZapine 5 MG TABLET PO SCH (21:26)
[2022-10-05] MEDS: LIDOCAINE PATCH REMOVAL MC SCH (21:27)
[2022-10-05] MEDS: MONTELUKAST NA 10 MG TABLET PO SCH (21:27)
[2022-10-05] MEDS: cloZAPine 100 MG TABLET PO SCH (21:27)
[2022-10-06] MEDS: DOCUSATE SODIUM 100 MG CAPSULE (FP) PO SCH ×3 (06:46→21:14)
[2022-10-06] MEDS: AMINO ACIDS/PROTEIN HYDROLYS 30 ML LIQUID.PKT PO SCH ×2 (08:57→17:59)
[2022-10-06] MEDS: ASCORBIC ACID 250 MG TABLET (FP) PO SCH (09:00)
[2022-10-06] MEDS: MULTIVITAMINS (DAILY MVI) TABLET (FP) PO SCH (09:00)
[2022-10-06] MEDS: OLANZapine 5 MG TABLET PO SCH ×2 (09:00→21:14)
[2022-10-06] MEDS: POLYETHYLENE GLYCOL (HEALTHYLAX) 3350 17 GM PACKET PO SCH ×2 (09:01→21:14)
[2022-10-06] MEDS: ENOXAPARIN NA (PORCINE) 30 MG/0.3 ML DISP.SYRIN SQ SCH (09:01)
[2022-10-06] MEDS: cloZAPine 25 MG TABLET PO SCH (09:01)
[2022-10-06] MEDS: LIDOCAINE 5% TOPICAL PATCH TP SCH (09:01)
[2022-10-06] MEDS: FLUTICASONE/UMECLIDIN/VILANTER(100-62.5-25 TRELEGY ELLIPTA) INAHLER IH SCH (09:03)
[2022-10-06] MEDS: MONTELUKAST NA 10 MG TABLET PO SCH (21:14)
[2022-10-06] MEDS: MIRTAZAPINE 15 MG TABLET (FP) PO SCH (21:14)
[2022-10-06] MEDS: cloZAPine 100 MG TABLET PO SCH (21:14)
[2022-10-06] MEDS: LIDOCAINE PATCH REMOVAL MC SCH (21:15)
[2022-10-06] MEDS: ACETAMINOPHEN 325 MG TABLET (FP) PO PRN (21:42)
[2022-10-07 01:51] LABS: PH,URINE 5.5 (5.0-8.0); URINE APPEARANCE CLEAR; URINE BILIRUBIN NEGATIVE (NEGATIVE); URINE COLOR YELLOW; URINE GLUCOSE (UA) NEGATIVE (NEGATIVE); URINE KETONE NEGATIVE (NEGATIVE); URINE LEUK ESTERASE NEGATIVE (NEGATIVE); URINE NITRITE NEGATIVE (NEGATIVE); URINE PROTEIN TRACE (NEGATIVE); URINE UROBILINOGEN 0.2 mg/dL (0.2-1.0)
[2022-10-07] MEDS: DOCUSATE SODIUM 100 MG CAPSULE (FP) PO SCH ×2 (05:34→13:26)
[2022-10-07] MEDS: AMINO ACIDS/PROTEIN HYDROLYS 30 ML LIQUID.PKT PO SCH (08:02)
[2022-10-07 08:55] VITALS: BP 109/66; PULSE 90; RESP 20
[2022-10-07] MEDS: POLYETHYLENE GLYCOL (HEALTHYLAX) 3350 17 GM PACKET PO SCH (09:17)
[2022-10-07] MEDS: MULTIVITAMINS (DAILY MVI) TABLET (FP) PO SCH (09:17)
[2022-10-07] MEDS: ENOXAPARIN NA (PORCINE) 30 MG/0.3 ML DISP.SYRIN SQ SCH (09:17)
[2022-10-07] MEDS: OLANZapine 5 MG TABLET PO SCH (09:18)
[2022-10-07] MEDS: LIDOCAINE 5% TOPICAL PATCH TP SCH (09:18)
[2022-10-07] MEDS: cloZAPine 25 MG TABLET PO SCH (09:18)
[2022-10-07] MEDS: ASCORBIC ACID 250 MG TABLET (FP) PO SCH (09:18)
[2022-10-07] MEDS: FLUTICASONE/UMECLIDIN/VILANTER(100-62.5-25 TRELEGY ELLIPTA) INAHLER IH SCH (09:19)
[2022-10-07 09:56] LABS: BASO % 0.5 % (0-2.0); EOS % 1.2 % (0-4.5); HEMATOCRIT 37.3 % (35.4-49); LYMPH % 8.1 % (8-40); MCH 32.8 pg (25.7-33.7); MCHC 34.8 g/dl (32.0-35.9); MEAN CELL VOLUME 94.3 fl (80-96); MEAN PLT VOLUME 7.5 fl (7.5-11.1); MONO % 7.6 % (3.8-10.2); NEUT % 82.6 % (42.8-82.8); PLATELET COUNT 220 10^3/uL (134-434); RBC 3.95 M/mm3 (4.00-5.60); RDW 13.9 % (11.9-15.9); WHITE BLOOD COUNT 8.4 K/mm3 (4.0-10.0)
[2022-10-07 10:20] LABS: POTASSIUM 4.1 mmol/L (3.5-5.1)
[2022-10-07 10:22] LABS: ALBUMIN 3.4 g/dl (3.4-5.0); BLOOD UREA NITROGEN 41.6 mg/dL (7-18); CALCIUM 8.9 mg/dL (8.5-10.1)
[2022-10-07 10:25] LABS: CREATININE 0.9 mg/dL (0.55-1.3)
[2022-10-07 10:26] LABS: BILIRUBIN,TOTAL 0.8 mg/dL (0.2-1); TOT PROT 6.3 g/dl (6.4-8.2)
[2022-10-07 12:47] VITALS: TEMP 98.5
== END 2022-10-07 15:27 | DRG 91 ==
LOC: JER 19:17 → JERBED 22:07 → J6S 09-29 02:29 → OBSVTOIN 09-30 10:35
PROVIDERS: ADMIT Student in an Organized Health Care Education/Training Program; ATTEND Internal Medicine
DX: G92.8 Other toxic encephalopathy (principal); E43 Unspecified severe protein-calorie malnutrition; F20.89 Other schizophrenia; Z68.1 Body mass index [BMI] 19.9 or less, adult; R64 Cachexia; E87.29 Other acidosis; J44.9 Chronic obstructive pulmonary disease, unspecified; F41.8 Other specified anxiety disorders; R62.7 Adult failure to thrive; R13.10 Dysphagia, unspecified; F03.90 Unspecified dementia, unspecified severity, without behavioral disturbance, psychotic disturbance, mood disturbance, and anxiety; Z85.810 Personal history of malignant neoplasm of tongue
CPT/HCPCS: 0241U-QW; 36415; 70450-TC; 70551-TC; 71045-TC-FY; 73564-TC-LT-FY; 73564-TC-RT-FY; 80048; 80053; 80307; 81003; 82607; 82746; 82803; 82962; 83036; 83605; 83735; 84100; 84439; 84443; 84484; 85025; 85610; 85730; 86780; 86850; 86900; 86901; 87040; 87086; 93005; 93010; 97116-GP; 97161-GP; 99285-25; C9803-CS; G0378; U0003; U0005

== ENCOUNTER 2023-06-23 15:36 | Inpatient (IN) | payer OTHER ==
[2023-06-23] MEDS ORDERED: DEXAMETHASONE SOD PHOSPHATE 10 MG/1 ML VIAL IVPUSH ONE (16:14)
[2023-06-23] MEDS ORDERED: DEXAMETHASONE SOD PHOSPHATE 10 MG/1 ML VIAL ONE (16:44)
[2023-06-23] MEDS ORDERED: ALBUTEROL SO4 2.5/IPRATROPIUM 0.5 INH SOL 3 ML VIAL.NEB. NEB ONE (16:44)
[2023-06-23] MEDS: ALBUTEROL SO4 2.5/IPRATROPIUM 0.5 INH SOL 3 ML VIAL.NEB. NEB SCH ×2 (16:59→17:31)
[2023-06-23 17:04] LABS: VENOUS BASE EXCESS 4.7 mmol/L (-2-2); VENOUS O2 SATURATION 15.7 % (70-80); VENOUS PCO2 59.7 mmHg (38-52)
[2023-06-23 17:07] LABS: BASO % 0.4 % (0-2.0); HEMATOCRIT 41.6 % (35.4-49); LYMPH % 7.3 % (8-40); MCH 32.2 pg (25.7-33.7); MCHC 33.7 g/dl (32.0-35.9); MEAN CELL VOLUME 95.7 fl (80-96); MEAN PLT VOLUME 7.1 fl (7.5-11.1); MONO % 5.4 % (3.8-10.2); NEUT % 86.9 % (42.8-82.8); PLATELET COUNT 228 10^3/uL (134-434); RBC 4.35 M/mm3 (4.00-5.60); RDW 13.8 % (11.9-15.9); WHITE BLOOD COUNT 9.7 K/mm3 (4.0-10.0)
[2023-06-23 17:37] LABS: POTASSIUM 4.1 mmol/L (3.5-5.1)
[2023-06-23 17:39] LABS: CALCIUM 8.4 mg/dL (8.5-10.1)
[2023-06-23 17:40] LABS: ALBUMIN 3.3 g/dl (3.4-5.0)
[2023-06-23 17:43] LABS: CREATININE 0.9 mg/dL (0.55-1.3)
[2023-06-23 17:44] LABS: TOT PROT 6.4 g/dl (6.4-8.2)
[2023-06-23 17:45] LABS: BILIRUBIN,TOTAL 0.4 mg/dL (0.2-1)
[2023-06-23] MEDS ORDERED: SENNOSIDES 8.6MG TABLET (FP) PO PRN (23:54)
[2023-06-24] MEDS ORDERED: ALBUTEROL SO4 2.5/IPRATROPIUM 0.5 INH SOL 3 ML VIAL.NEB. NEB ONE (01:51)
[2023-06-24] MEDS: ALBUTEROL SO4 2.5/IPRATROPIUM 0.5 INH SOL 3 ML VIAL.NEB. NEB SCH ×5 (02:20→20:11)
[2023-06-24 03:08] LABS: ARTERIAL BLD GAS O2 SATURATION 89.5 % (95-98); ARTERIAL BLOOD GAS BASE EXCESS 3.7 mmol/L (-2-2); ARTERIAL BLOOD GAS PO2 55.7 mmHg (80-100); ARTERIAL BLOOD GAS pH 7.423 (7.350-7.450)
[2023-06-24 03:37] LABS: ALLENS TEST POSITIVE
[2023-06-24] MEDS ORDERED: methylPREDNISolone NA SUCC 40 MG/1 ML VIAL ONE (06:21)
[2023-06-24] MEDS ORDERED: INSULIN ASPART SLIDING SCALE (NOVOLOG) 1 VIAL SQ SCH (07:00)
[2023-06-24] MEDS: methylPREDNISolone NA SUCC 40 MG/1 ML VIAL IVPB SCH ×2 (07:04→19:04)
[2023-06-24] MEDS: INSULIN ASPART SLIDING SCALE (NOVOLOG) 1 VIAL SQ SCH ×4 (08:13→22:58)
[2023-06-24 08:35] LABS: HEMATOCRIT 39.1 % (35.4-49); HEMOGLOBIN 13.2 GM/dL (11.7-16.9); MCHC 33.6 g/dl (32.0-35.9); MEAN PLT VOLUME 7.2 fl (7.5-11.1); PLATELET COUNT 239 10^3/uL (134-434); RBC 4.12 M/mm3 (4.00-5.60); WHITE BLOOD COUNT 9.4 K/mm3 (4.0-10.0)
[2023-06-24 08:59] LABS: POTASSIUM 4.5 mmol/L (3.5-5.1)
[2023-06-24 09:05] LABS: BLOOD UREA NITROGEN 30.8 mg/dL (7-18); CALCIUM 8.7 mg/dL (8.5-10.1); MAGNESIUM 2.5 mg/dL (1.8-2.4)
[2023-06-24 09:08] LABS: CREATININE 0.9 mg/dL (0.55-1.3)
[2023-06-24] MEDS: LOSARTAN POTASSIUM 25 MG TABLET PO SCH (09:27)
[2023-06-24] MEDS: OLANZapine 5 MG TABLET PO SCH ×2 (09:31→21:58)
[2023-06-24] MEDS: THIAMINE HCL 100 MG TABLET (FP) PO SCH (09:31)
[2023-06-24] MEDS: ASCORBIC ACID 250 MG TABLET (FP) PO SCH (09:31)
[2023-06-24] MEDS: ENOXAPARIN NA (PORCINE) 40 MG/0.4 ML DISP.SYRIN SQ SCH (09:31)
[2023-06-24] MEDS: MULTIVITAMINS (DAILY MVI) TABLET (FP) PO SCH (09:31)
[2023-06-24] MEDS: FERROUS SO4 325 MG TABLET (FP) PO SCH (09:31)
[2023-06-24] MEDS: BUDESONIDE/FORMETEROL FUMARATE 160/4.5 mcg INHALER IH SCH ×2 (10:17→21:59)
[2023-06-24] MEDS: ATORVASTATIN CA 10 MG TABLET (FP) PO SCH (22:12)
[2023-06-25] MEDS: methylPREDNISolone NA SUCC 40 MG/1 ML VIAL IVPB SCH ×3 (02:13→21:55)
[2023-06-25] MEDS: INSULIN ASPART SLIDING SCALE (NOVOLOG) 1 VIAL SQ SCH ×4 (06:29→21:55)
[2023-06-25] MEDS: ALBUTEROL SO4 2.5/IPRATROPIUM 0.5 INH SOL 3 ML VIAL.NEB. NEB SCH ×4 (07:46→19:20)
[2023-06-25 09:23] LABS: HEMATOCRIT 38.8 % (35.4-49); HEMOGLOBIN 13.2 GM/dL (11.7-16.9); MCH 31.9 pg (25.7-33.7); MCHC 33.9 g/dl (32.0-35.9); MEAN CELL VOLUME 94.1 fl (80-96); MEAN PLT VOLUME 7.4 fl (7.5-11.1); PLATELET COUNT 245 10^3/uL (134-434); RBC 4.13 M/mm3 (4.00-5.60); RDW 13.7 % (11.9-15.9); WHITE BLOOD COUNT 11.3 K/mm3 (4.0-10.0)
[2023-06-25 09:39] LABS: POTASSIUM 4.7 mmol/L (3.5-5.1)
[2023-06-25 09:49] LABS: BLOOD UREA NITROGEN 36.2 mg/dL (7-18); CALCIUM 9.2 mg/dL (8.5-10.1)
[2023-06-25 09:52] LABS: CREATININE 0.8 mg/dL (0.55-1.3)
[2023-06-25] MEDS: ASCORBIC ACID 250 MG TABLET (FP) PO SCH (10:04)
[2023-06-25] MEDS: ENOXAPARIN NA (PORCINE) 40 MG/0.4 ML DISP.SYRIN SQ SCH (10:04)
[2023-06-25] MEDS: MULTIVITAMINS (DAILY MVI) TABLET (FP) PO SCH (10:04)
[2023-06-25] MEDS: THIAMINE HCL 100 MG TABLET (FP) PO SCH (10:04)
[2023-06-25] MEDS: OLANZapine 5 MG TABLET PO SCH ×2 (10:04→21:55)
[2023-06-25] MEDS: LOSARTAN POTASSIUM 25 MG TABLET PO SCH (10:04)
[2023-06-25] MEDS: BUDESONIDE/FORMETEROL FUMARATE 160/4.5 mcg INHALER IH SCH ×2 (10:05→21:58)
[2023-06-25] MEDS: FERROUS SO4 325 MG TABLET (FP) PO SCH (10:05)
[2023-06-25] MEDS ORDERED: INSULIN ASPART SLIDING SCALE (NOVOLOG) 1 VIAL SQ ONE (10:58)
[2023-06-25 12:08] LABS: ANISOCYTOSIS 0; HELMET CELLS 0; HOWELL-JOLLY BODIES 0; MACROCYTOSIS 0; OVALOCYTE 0; ROULEAU 0; SICKELED CELLS 0; TARGET CELLS 0; TEAR DROP CELLS 0; TOXIC GRANULATION 0
[2023-06-25] MEDS: ATORVASTATIN CA 10 MG TABLET (FP) PO SCH (21:55)
[2023-06-26] MEDS: INSULIN ASPART SLIDING SCALE (NOVOLOG) 1 VIAL SQ SCH ×4 (06:54→22:55)
[2023-06-26] MEDS: ALBUTEROL SO4 2.5/IPRATROPIUM 0.5 INH SOL 3 ML VIAL.NEB. NEB SCH ×4 (07:45→20:01)
[2023-06-26 08:35] LABS: HEMATOCRIT 37.1 % (35.4-49); HEMOGLOBIN 12.9 GM/dL (11.7-16.9); MCH 32.8 pg (25.7-33.7); MCHC 34.7 g/dl (32.0-35.9); MEAN CELL VOLUME 94.6 fl (80-96); MEAN PLT VOLUME 7.3 fl (7.5-11.1); PLATELET COUNT 282 10^3/uL (134-434); RBC 3.93 M/mm3 (4.00-5.60); RDW 13.5 % (11.9-15.9)
[2023-06-26 09:07] LABS: POTASSIUM 4.6 mmol/L (3.5-5.1)
[2023-06-26 09:20] LABS: CALCIUM 9.2 mg/dL (8.5-10.1)
[2023-06-26 09:22] LABS: BLOOD UREA NITROGEN 35.4 mg/dL (7-18)
[2023-06-26 09:25] LABS: CREATININE 0.7 mg/dL (0.55-1.3)
[2023-06-26] MEDS: FERROUS SO4 325 MG TABLET (FP) PO SCH (09:43)
[2023-06-26] MEDS: ENOXAPARIN NA (PORCINE) 40 MG/0.4 ML DISP.SYRIN SQ SCH (09:43)
[2023-06-26] MEDS: methylPREDNISolone NA SUCC 40 MG/1 ML VIAL IVPB SCH ×2 (09:43→22:55)
[2023-06-26] MEDS: OLANZapine 5 MG TABLET PO SCH ×2 (09:44→22:55)
[2023-06-26] MEDS: MULTIVITAMINS (DAILY MVI) TABLET (FP) PO SCH (09:44)
[2023-06-26] MEDS: LOSARTAN POTASSIUM 25 MG TABLET PO SCH (09:44)
[2023-06-26] MEDS: ASCORBIC ACID 250 MG TABLET (FP) PO SCH (09:44)
[2023-06-26] MEDS: THIAMINE HCL 100 MG TABLET (FP) PO SCH (09:44)
[2023-06-26] MEDS: BUDESONIDE/FORMETEROL FUMARATE 160/4.5 mcg INHALER IH SCH ×2 (09:44→22:57)
[2023-06-26] MEDS: ATORVASTATIN CA 10 MG TABLET (FP) PO SCH (22:55)
[2023-06-27] MEDS: INSULIN ASPART SLIDING SCALE (NOVOLOG) 1 VIAL SQ SCH ×4 (06:08→21:29)
[2023-06-27] MEDS: ALBUTEROL SO4 2.5/IPRATROPIUM 0.5 INH SOL 3 ML VIAL.NEB. NEB SCH ×4 (08:40→20:03)
[2023-06-27 10:14] LABS: BASO % 0.1 % (0-2.0); HEMATOCRIT 38.9 % (35.4-49); LYMPH % 6.5 % (8-40); MCH 32.3 pg (25.7-33.7); MCHC 33.4 g/dl (32.0-35.9); MEAN CELL VOLUME 96.7 fl (80-96); MEAN PLT VOLUME 7.4 fl (7.5-11.1); MONO % 3.8 % (3.8-10.2); NEUT % 89.6 % (42.8-82.8); PLATELET COUNT 289 10^3/uL (134-434); RBC 4.02 M/mm3 (4.00-5.60); RDW 13.4 % (11.9-15.9); WHITE BLOOD COUNT 7.6 K/mm3 (4.0-10.0)
[2023-06-27 10:26] LABS: POTASSIUM 4.5 mmol/L (3.5-5.1)
[2023-06-27 11:10] LABS: CALCIUM 8.6 mg/dL (8.5-10.1)
[2023-06-27 11:11] LABS: BLOOD UREA NITROGEN 34.2 mg/dL (7-18)
[2023-06-27 11:14] LABS: CREATININE 0.9 mg/dL (0.55-1.3)
[2023-06-27] MEDS: ASCORBIC ACID 250 MG TABLET (FP) PO SCH (11:44)
[2023-06-27] MEDS: FERROUS SO4 325 MG TABLET (FP) PO SCH (11:44)
[2023-06-27] MEDS: MULTIVITAMINS (DAILY MVI) TABLET (FP) PO SCH (11:44)
[2023-06-27] MEDS: OLANZapine 5 MG TABLET PO SCH ×2 (11:44→21:29)
[2023-06-27] MEDS: THIAMINE HCL 100 MG TABLET (FP) PO SCH (11:44)
[2023-06-27] MEDS: ENOXAPARIN NA (PORCINE) 40 MG/0.4 ML DISP.SYRIN SQ SCH (11:44)
[2023-06-27] MEDS: LOSARTAN POTASSIUM 25 MG TABLET PO SCH (11:44)
[2023-06-27] MEDS: predniSONE 10 MG TABLET (UD) PO SCH (11:45)
[2023-06-27] MEDS: ATORVASTATIN CA 10 MG TABLET (FP) PO SCH (21:29)
[2023-06-28] MEDS: INSULIN ASPART SLIDING SCALE (NOVOLOG) 1 VIAL SQ SCH ×4 (06:04→21:46)
[2023-06-28] MEDS: ALBUTEROL SO4 2.5/IPRATROPIUM 0.5 INH SOL 3 ML VIAL.NEB. NEB SCH ×4 (07:30→20:36)
[2023-06-28] MEDS: predniSONE 10 MG TABLET (UD) PO SCH (09:13)
[2023-06-28] MEDS: OLANZapine 5 MG TABLET PO SCH ×2 (09:13→21:46)
[2023-06-28] MEDS: FERROUS SO4 325 MG TABLET (FP) PO SCH (09:13)
[2023-06-28] MEDS: ASCORBIC ACID 250 MG TABLET (FP) PO SCH (09:13)
[2023-06-28] MEDS: THIAMINE HCL 100 MG TABLET (FP) PO SCH (09:13)
[2023-06-28] MEDS: ENOXAPARIN NA (PORCINE) 40 MG/0.4 ML DISP.SYRIN SQ SCH (09:14)
[2023-06-28] MEDS: MULTIVITAMINS (DAILY MVI) TABLET (FP) PO SCH (09:14)
[2023-06-28] MEDS: LOSARTAN POTASSIUM 25 MG TABLET PO SCH (09:14)
[2023-06-28] MEDS: NYSTATIN 500,000 UNITS/5 ML SUSPENSION PO SCH ×2 (13:13→17:20)
[2023-06-28 15:06] VITALS: BMI 15.3
[2023-06-28] MEDS: ATORVASTATIN CA 10 MG TABLET (FP) PO SCH (21:46)
[2023-06-29] MEDS: NYSTATIN 500,000 UNITS/5 ML SUSPENSION PO SCH ×4 (00:30→17:21)
[2023-06-29] MEDS: INSULIN ASPART SLIDING SCALE (NOVOLOG) 1 VIAL SQ SCH ×4 (06:24→21:35)
[2023-06-29] MEDS: THIAMINE HCL 100 MG TABLET (FP) PO SCH (10:28)
[2023-06-29] MEDS: MULTIVITAMINS (DAILY MVI) TABLET (FP) PO SCH (10:28)
[2023-06-29] MEDS: FERROUS SO4 325 MG TABLET (FP) PO SCH (10:28)
[2023-06-29] MEDS: OLANZapine 5 MG TABLET PO SCH ×2 (10:28→21:34)
[2023-06-29] MEDS: ASCORBIC ACID 250 MG TABLET (FP) PO SCH (10:28)
[2023-06-29] MEDS: LOSARTAN POTASSIUM 25 MG TABLET PO SCH (10:29)
[2023-06-29] MEDS: predniSONE 10 MG TABLET (UD) PO SCH (10:29)
[2023-06-29] MEDS: ENOXAPARIN NA (PORCINE) 40 MG/0.4 ML DISP.SYRIN SQ SCH (10:29)
[2023-06-29] MEDS ORDERED: predniSONE 20 MG TABLET (UD) PO SCH (11:29)
[2023-06-29] MEDS: ATORVASTATIN CA 10 MG TABLET (FP) PO SCH (21:34)
[2023-06-29 22:53] VITALS: RESP 18
[2023-06-30] MEDS: NYSTATIN 500,000 UNITS/5 ML SUSPENSION PO SCH ×3 (06:01→12:06)
[2023-06-30] MEDS: INSULIN ASPART SLIDING SCALE (NOVOLOG) 1 VIAL SQ SCH ×2 (06:02→11:46)
[2023-06-30] MEDS: MULTIVITAMINS (DAILY MVI) TABLET (FP) PO SCH (09:06)
[2023-06-30] MEDS: LOSARTAN POTASSIUM 25 MG TABLET PO SCH (09:06)
[2023-06-30] MEDS: FERROUS SO4 325 MG TABLET (FP) PO SCH (09:06)
[2023-06-30] MEDS: THIAMINE HCL 100 MG TABLET (FP) PO SCH (09:06)
[2023-06-30] MEDS: ENOXAPARIN NA (PORCINE) 40 MG/0.4 ML DISP.SYRIN SQ SCH (09:06)
[2023-06-30] MEDS: ASCORBIC ACID 250 MG TABLET (FP) PO SCH (09:06)
[2023-06-30] MEDS: OLANZapine 5 MG TABLET PO SCH (09:06)
[2023-06-30 12:46] VITALS: BP 93/68; PULSE 89; TEMP 98.1
== END 2023-06-30 12:51 | DRG 190 ==
LOC: JER 15:36 → JERBED 18:41 → J6S 06-24 18:08
PROVIDERS: ADMIT Internal Medicine; ATTEND Internal Medicine
DX: J44.1 Chronic obstructive pulmonary disease with (acute) exacerbation (principal); E43 Unspecified severe protein-calorie malnutrition; J96.21 Acute and chronic respiratory failure with hypoxia; J96.22 Acute and chronic respiratory failure with hypercapnia; Z68.1 Body mass index [BMI] 19.9 or less, adult; Z99.81 Dependence on supplemental oxygen; F32.A Depression, unspecified; F20.9 Schizophrenia, unspecified; B97.4 Respiratory syncytial virus as the cause of diseases classified elsewhere
CPT/HCPCS: 0241U-QW; 36415; 36600; 71045-TC-FY; 80048; 80053; 82803; 82962; 83735; 84484; 85025; 85027; 93005; 93010; 94640; 94660; 94761; 97116-GP; 97161-GP; 99291; J1100